=== PATIENT | male | born 1940 | race Caucasian/White ===

== ENCOUNTER 2016-11-09 19:35 | Observation (INO) | payer MEDICARE, OTHER ==
[2016-11-09 19:53] VITALS: BMI 19.8
--- NOTE | 2016-11-09 20:22 | ED PDOC ---
Arrival/HPI - General Chief Complaint: High Blood Pressure Time Seen by Provider: 11/09/16 19:43 Historian: Patient - History of Present Illness Narrative History of Present Illness (Text): 11/09/16 20:20 The patient is a 76yo male with Past medical history of hypertension, NIDDM, hyperlipidemia, CAD, s/p coronary stent placement, presents to Emergency department with complaints of generalized malaise and weakness. Pt also reports he has been losing weight; additionally reports complaints of diarrhea and intermittent chest pain. Pt denies any history of fever, chills, shortness of breath. Pt offers no additional medical complaints. PCP: Teresa Sheridan Past Medical History - Provider Review Nursing Documentation Reviewed: Yes - Infectious Disease Hx of Infectious Diseases: None - Tetanus Immunization Tetanus Immunization: Unknown - Reproductive Currently : No Currently Lactating: No - Cardiac Hx Hypertension: Yes Hx Pacemaker: No - Pulmonary Hx Respiratory Disorders: No - Neurological Hx Paralysis: No - HEENT Hx HEENT Disorder: No (lasik surgery) - Renal Hx Renal Disorder: No - Endocrine/Metabolic Hx Endocrine Disorders: Yes Hx Diabetes Mellitus Type 2: Yes - Hematological/Oncological Hx Blood Transfusions: No Hx Blood Transfusion Reaction: No - Integumentary Hx Dermatological Disorder: No - Musculoskeletal/Rheumatological Hx Musculoskeletal Disorders: Yes - Gastrointestinal Hx Gastrointestinal Disorders: Yes Hx Gastroesophageal Reflux: Yes - Genitourinary/Gynecological Hx Genitourinary Disorders: No - Psychiatric Hx Emotional Abuse: No Hx Physical Abuse: No Hx Substance Use: No - Past Surgical History Past Surgical History: No Previous - Surgical History Other/Comment: valve replacement - Anesthesia Hx Anesthesia: Yes Hx Anesthesia Reactions: No - Suicidal Assessment Feels Threatened In Home Enviroment: No Family/Social History - Physician Review Nursing Documentation Reviewed: Yes Family/Social History: Unknown Family HX Smoking Status: Never Smoked Hx Alcohol Use: No Hx Substance Use: No Hx Substance Use Treatment: No Allergies/Home Meds Allergies/Adverse Reactions: Allergies Penicillins Allergy (Severe, Verified 03/23/16 11:15) ANGIOEDEMA Home Medications: Home Meds Medication Instructions Recorded Confirmed Metformin HCl 1,000 mg PO BID 11/02/11 11/09/16 Sitagliptin Phosphate [Januvia] 100 mg PO DAILY 11/02/11 11/09/16 Aspirin [Aspirin EC] 81 mg PO DAILY 12/30/14 11/09/16 Carvedilol [Coreg] 12.5 mg PO DAILY 03/23/16 11/09/16 GlipiZIDE [Glucotrol] 5 mg PO DAILY 03/23/16 11/09/16 Pravastatin Sodium [Pravachol] 40 mg PO DAILY 03/23/16 11/09/16 Clopidogrel [Plavix] 1 tab PO DAILY 11/09/16 11/09/16 Dexlansoprazole [Dexilant] 1 cap PO DAILY 11/09/16 11/09/16 Review of Systems - Physician Review All systems were reviewed & negative as marked: Yes - Review of Systems Constitutional: Weight Change, Other (malaise, generalized discomfort). absent : Fevers Respiratory: absent: SOB Cardiovascular: Chest Pain (intermittent), Other (chest discomfort) Gastrointestinal: Diarrhea Physical Exam Vital Signs Reviewed: Yes Vital Signs Temp Pulse Resp BP Pulse Ox 11/09/16 19:59 168/68 H 11/09/16 19:52 97.8 F 75 18 173/62 H 99 Temperature: Afebrile Blood Pressure: Normal Pulse: Regular Respiratory Rate: Normal Appearance: Positive for: Well-Appearing, Non-Toxic, Comfortable Mental Status: Positive for: Alert and Oriented X 3 - Systems Exam Head: Present: Atraumatic, Normocephalic Pupils: Present: PERRL Extroacular Muscles: Present: EOMI Conjunctiva: Present: Normal Mouth: Present: Moist Mucous Membranes Neck: Present: Normal Range of Motion Respiratory/Chest: Present: Clear to Auscultation, Good Air Exchange. No: Respiratory Distress, Accessory Muscle Use Cardiovascular: Present: Regular Rate and Rhythm, Normal S1, S2. No: Murmurs Abdomen: Present: Normal Bowel Sounds. No: Tenderness, Distention, Peritoneal Signs Back: Present: Normal Inspection Upper Extremity: Present: Normal Inspection. No: Cyanosis, Edema Lower Extremity: Present: Normal Inspection. No: Edema Neurological: Present: GCS=15, CN II-XII Intact, Speech Normal Skin: Present: Warm, Dry, Normal Color. No: Rashes Psychiatric: Present: Alert, Oriented x 3, Normal Insight, Normal Concentration Medical Decision Making ED Course and Treatment: 11/09/16 20:23 Impression: Chest discomfort, general malaise and weakness Differential Diagnosis included but are not limited to: Electrolyte disturbance, cardiac angina, pneumonia, occult cancer Plan: -- Labs -- EKG -- CXR -- Reassess and disposition Progress Notes: 11/09/16 22:[address] Dent who is aware and agrees with the plan to admit patient to telemetry for chest pain. Accepts patient under her service with Dr. Chaidez on cardiology consult. - Lab Interpretations Lab Results: 11/09/16 20:50 11/09/16 20:50 Lab Results 11/09/16 20:50: WBC 5.1, RBC 3.84, Hgb 8.6 L, Hct 27.6 L, MCV 71.9 L, MCH 22.4 L , MCHC 31.2, RDW 17.2 H, Plt Count 258, MPV 9.5 11/09/16 20:50: Sodium 136, Potassium 4.0, Chloride 103, Carbon Dioxide 22, Anion Gap 15, BUN 18, Creatinine 0.9, Est GFR ( Amer) > 60, Est GFR (Non- Af Amer) > 60, Random Glucose 131 H, Calcium 9.3, Total Bilirubin 0.4, AST 29, ALT 27, Alkaline Phosphatase 58, Lactate Dehydrogenase 405, Total Creatine Kinase 74, Troponin I < 0.01, Total Protein 7.2, Albumin 3.9, Globulin 3.3, Albumin/Globulin Ratio 1.2 11/09/16 20:50: PT 12.4 H, INR 1.15 H, APTT 27.2 - RAD Interpretation Narrative RAD Interpretations (Text): 11/09/16 21:49 Chest X-ray with no acute processes. Radiology Orders: 11/09/16 20:13 CHEST PORTABLE [RAD] Stat C Iron Worker: ED Physician - EKG Interpretation EKG Interpretation (Text): 11/09/16 21:17 Normal sinus rhythm HR of 72 BPM 1st degree AV block RBBB Left anterior fascicular block Interpreted by ED Physician: Yes Comparison: Similar to previous EKG - Medication Orders Current Medication Orders: Sodium Chloride (Sodium Chloride 0.9%) 1,000 mls @ 100 mls/hr IV .Q10H [facility] - Scribe Statement The provider has reviewed the documentation as recorded by the Nish Reid Provider Scribe Attestation: All medical record entries made by the Aniibomid were at my direction and personally dictated by me. I have reviewed the chart and agree that the record accurately reflects my personal performance of the history, physical exam, medical decision making, and the department course for this patient. I have also personally directed, reviewed, and agree with the discharge instructions and disposition. Disposition/Present on Arrival - Present on Arrival Any Indicators Present on Arrival: No History of DVT/PE: No History of Uncontrolled Diabetes: No Urinary Catheter: No History of Decub. Ulcer: No History Surgical Site Infection Following: None - Disposition Have Diagnosis and Disposition been Completed?: Yes Diagnosis: Chest pain Disposition: HOSPITALIZED Disposition Time: 22:13 Patient Plan: Observation Patient Problems: Current Active Problems Problem Status Onset Chest pain Acute Condition: STABLE
[2016-11-09 21:12] LABS: HEMOGLOBIN 8.6 gm/dL (14.0-18.0); MEAN CELL VOLUME 71.9 fL (80.0-105.0); MEAN CORPUSCULAR HEMOGLOBIN 22.4 pg (25.0-35.0); MEAN CORPUSCULAR HGB CONC 31.2 g/dl (31.0-37.0); MEAN PLATELET VOLUME 9.5 fl (7.0-11.0); RBC 3.84 10^6/uL (3.5-6.1); RED CELL DISTRIBUTION WIDTH 17.2 % (11.5-14.5); WHITE BLOOD COUNT 5.1 10^3/ul (4.5-11.0)
[2016-11-09 21:22] LABS: ALB/GLOB RATIO 1.2 (1.1-1.8); ALBUMIN 3.9 g/dL (3.0-4.8); ALT/SGPT 27 U/L (7-56); AST/SGOT 29 U/L (15-59); BLOOD UREA NITROGEN 18 mg/dL (7-21); CALCIUM 9.3 mg/dL (8.4-10.5); GFR AFRICAN-AMERICAN > 60; GFR NON-AFRICAN AMERICAN > 60
[2016-11-09 21:38] LABS: TROPONIN I < 0.01 ng/mL
[2016-11-09] MEDS ORDERED: Sodium Chloride 0.9% 1,000 ML IV SCH (21:45)
[2016-11-09 22:18] LABS: INR 1.15 (0.93-1.08); PARTIAL THROMBOPLASTIN TIME 27.2 Seconds (23.7-30.8); PROTHROMBIN TIME 12.4 Seconds (9.9-11.8)
[2016-11-10 06:16] VITALS: O2SAT 100
--- NOTE | 2016-11-10 07:44 | RAD ---
HISTORY: weak COMPARISON: 03/18/2016 FINDINGS: LUNGS: Lung volumes probably slightly increased. Biapical pleural thickening. Probable left apical blebs/ bullous emphysematous changes. No infiltrate. Infrahilar bilateral costo cartilaginous calcifications project over each medial lung base PLEURA: No significant pleural effusion identified, no pneumothorax apparent. Biapical pleural thickening CARDIOVASCULAR: Normal. OSSEOUS STRUCTURES: Thoracic spondylosis. Bilateral shoulder arthrosis VISUALIZED UPPER ABDOMEN: Normal. OTHER FINDINGS: None. IMPRESSION: No interval infiltrate Inferred chronic biapical changes
[2016-11-10 09:02] LABS: HDL CHOLESTEROL 32 mg/dL (29-60)
--- NOTE | 2016-11-10 09:10 | CP.PCM.CON ---
History of Present Illness - History of Present Illness History of Present Illness: Reason for Consultation: Cardiac Eval, Hx of PTCA admitted with Diarhea and weakness. 76 year old with pMhx CAD S/p PTCA with MARCO of Proximal RCA and POBA of RPDA/ Mid Cx admitted with Diarhea and gen weakness and low H& H , denies chest pain, SOB. but c/o occ skip beat.??? PMHX T2 DM, HTN, Hyperlidemia. Previous cardiac W/uAbnormal stress test 03/09/16... leading cath / PTCA of RCA with MARCO and POBa of R PDa / Cx, EF-55%, [id number] Echo..03/19/2016.. EF-55%,Trace [id number], Mild MR Holter... no Skip Beat. No Pause, Occ Apcs ( pt always C/o Skip Beat) Review of Systems - Review of Systems Systems not reviewed;Unavailable: Acuity of Condition - Constitutional Constitutional: As Per HPI, Frequent Falls Additional comments: [place] in [place] on speed breaker bump, bult nio LOC - EENT Eyes: As Per HPI Ears: As Per HPI Nose/Mouth/Throat: As Per HPI - Cardiovascular Cardiovascular: As Per HPI - Respiratory Respiratory: As Per HPI - Gastrointestinal Gastrointestinal: Abdominal Pain, Dysphagia, Loose Stools Additional comments: and water diarrhea. Past Patient History - Infectious Disease Hx of Infectious Diseases: None - Tetanus Immunizations Tetanus Immunization: Unknown - Past Social History Smoking Status: Never Smoked - CARDIAC Hx Hypercholesterolemia: Yes Hx Hypertension: Yes - PULMONARY Hx Respiratory Disorders: No - NEUROLOGICAL Hx Paralysis: No - HEENT Hx HEENT Problems: No (lasik surgery) - RENAL Hx Chronic Kidney Disease: No - ENDOCRINE/METABOLIC Hx Diabetes Mellitus Type 2: Yes - HEMATOLOGICAL/ONCOLOGICAL Hx Anemia: Yes - INTEGUMENTARY Hx Dermatological Problems: No - MUSCULOSKELETAL/RHEUMATOLOGICAL Hx Falls: Yes - GASTROINTESTINAL Hx Gastroesophageal Reflux: Yes - GENITOURINARY/GYNECOLOGICAL Hx Genitourinary Disorders: No - PSYCHIATRIC Hx Emotional Abuse: No Hx Physical Abuse: No Hx Substance Use: No - SURGICAL HISTORY Other/Comment: valve replacement - ANESTHESIA Hx Anesthesia: Yes Hx Anesthesia Reactions: No Meds Allergies/Adverse Reactions: Allergies Allergy/AdvReac Type Severity Reaction Status Date / Time Penicillins Allergy Severe ANGIOEDEMA Verified 03/23/16 11:15 - Medications Medications: Current Medications Sodium Chloride (Sodium Chloride 0.9%) 1,000 mls @ 100 mls/hr IV .Q10H [facility] Last Admin: 11/09/16 22:41 Dose: 100 mls/hr Results - Vital Signs Recent Vital Signs: Last Vital Signs Temp 97.5 F L 11/10/16 06:00 Pulse 60 11/10/16 06:00 Resp 18 11/10/16 06:00 BP 144/67 11/10/16 06:00 Pulse Ox 100 11/10/16 06:00 - Labs Result Diagrams: 11/09/16 20:50 11/09/16 20:50 Labs: Laboratory Results - last 24 hr 11/10/16 07:29 POC Glucose (mg/dL) 87 - EKG Data When Compared to Previous EKG: No Significant Change EKG comments: NSR, RBB, LAD. Assessment & Plan - Assessment and Plan (Free Text) Assessment: Anemia diarrea loos BM gen weakness No chest pain CAD S/p PTCA with MARCO of RCA- 03/29/2016 T2DM HTN Hyperlidemia Plan: Anemia W/u ..as ordered TSH, Lipid profile, HA1c troponin this am No acute Cardiac problem consider GI W/U Echo to assess LV Fx if need to Hold Plavix from GI W/u can be hold as stent is > 8 months. will F/u, if repeat Troponin is negative will dc tele. - Date & Time Date: 11/10/16 Time: 07:30
[2016-11-10 09:13] LABS: LDL CHOLESTEROL 46 mg/dL (0-129)
[2016-11-10 09:24] LABS: TROPONIN I < 0.01 ng/mL
[2016-11-10 09:29] LABS: % IRON SATURATION 3 % (20-55); IRON 12 ug/dL (45-180); TOTAL IRON BINDING CAPACITY 399 ug/dL (261-462)
[2016-11-10 09:52] LABS: HEMOGLOBIN 8.8 gm/dL (14.0-18.0); MEAN CELL VOLUME 71.5 fL (80.0-105.0); MEAN CORPUSCULAR HEMOGLOBIN 22.4 pg (25.0-35.0); MEAN CORPUSCULAR HGB CONC 31.3 g/dl (31.0-37.0); MEAN PLATELET VOLUME 9.9 fl (7.0-11.0); RBC 3.93 10^6/uL (3.5-6.1); WHITE BLOOD COUNT 4.7 10^3/ul (4.5-11.0)
[2016-11-10 10:07] LABS: ALB/GLOB RATIO 1.2 (1.1-1.8); ALBUMIN 3.7 g/dL (3.0-4.8); ALT/SGPT 21 U/L (7-56); AST/SGOT 26 U/L (15-59); BLOOD UREA NITROGEN 14 mg/dL (7-21); GFR AFRICAN-AMERICAN > 60; GFR NON-AFRICAN AMERICAN > 60
[2016-11-10] MEDS ORDERED: Barium Sulfate Susp 2.1% w/v, 2.0% w/w 450 mL Bottle PO ONE (10:09)
[2016-11-10] MEDS: Sodium Chloride 0.9% 1,000 ML IV SCH ×3 (10:57→23:34)
[2016-11-10] MEDS: Pantoprazole 40 mg EC Tab PO SCH (10:57)
[2016-11-10 12:03] VITALS: RESP 20
--- NOTE | 2016-11-10 12:42 | CP.PCM.CON ---
<Teresa Liu - Last Filed: 11/10/16 12:24> History of Present Illness - History of Present Illness History of Present Illness: Seen and examined at bedside, chart reviewed. Request for consult is for: Diarrhea and Anemia HPI : This is a 76 year old male with a history of HTN, Anemia, DM, CAD w / stent on Plavix and Aspirin, comes to the hospital with complaints of feeling weak, and tired. He also have intermittent chest pain and diarrhea. He complains of diarrhea. He was in [place] in July and fell , had a laceration and was given antibiotic in [place]. He does not recall the name of the antibiotics but reports that this is when he started having diarrhea. No bleeding reported. He does report post prandial diarrhea, no N/V or abdominal pain. He reports that he has chronic Anemia, he had EGD/ Colon last noted in system 2011 for ANemia workup and no acute findings,stomach biopfy to r/o celiac disease, eosinophilic esophagitis, h pylori were negative. No c/o dysphagia. He as not had a BM since admission. He is currently drinking oral coantrast for ct scan. No SOB or chest pain. PMH: Anemia, DM, CAD w/ stent , HTN PSH: egd/colon 2011, no polyps Allergies: Penicillin MEDS: reviewed as per MAR FH: noncontributory at this time Social HX: denies smoking, etoh,drugs ROS: systems reviewed as per HPI Past Patient History - Infectious Disease Hx of Infectious Diseases: None - Tetanus Immunizations Tetanus Immunization: Unknown - Past Social History Smoking Status: Never Smoked - CARDIAC Hx Hypercholesterolemia: Yes Hx Hypertension: Yes - PULMONARY Hx Respiratory Disorders: No - NEUROLOGICAL Hx Paralysis: No - HEENT Hx HEENT Problems: No (lasik surgery) - RENAL Hx Chronic Kidney Disease: No - ENDOCRINE/METABOLIC Hx Diabetes Mellitus Type 2: Yes - HEMATOLOGICAL/ONCOLOGICAL Hx Anemia: Yes - INTEGUMENTARY Hx Dermatological Problems: No - MUSCULOSKELETAL/RHEUMATOLOGICAL Hx Falls: Yes - GASTROINTESTINAL Hx Gastroesophageal Reflux: Yes - GENITOURINARY/GYNECOLOGICAL Hx Genitourinary Disorders: No - PSYCHIATRIC Hx Emotional Abuse: No Hx Physical Abuse: No Hx Substance Use: No - SURGICAL HISTORY Other/Comment: valve replacement - ANESTHESIA Hx Anesthesia: Yes Hx Anesthesia Reactions: No Meds Allergies/Adverse Reactions: Allergies Allergy/AdvReac Type Severity Reaction Status Date / Time Penicillins Allergy Severe ANGIOEDEMA Verified 03/23/16 11:15 - Medications Medications: Current Medications Aspirin (Ecotrin) 81 mg PO DAILY [facility] Last Admin: 11/10/16 10:56 Dose: 81 mg Atorvastatin Calcium (Lipitor) 10 mg PO DIN [facility] Carvedilol (Coreg) 12.5 mg PO DAILY [facility] Last Admin: 11/10/16 10:56 Dose: 12.5 mg Clopidogrel Bisulfate (Plavix) 75 mg PO DAILY [facility] Glipizide (Glucotrol) 5 mg PO ACB [facility] Last Admin: 11/10/16 10:57 Dose: 5 mg Sodium Chloride (Sodium Chloride 0.9%) 1,000 mls @ 100 mls/hr IV .Q10H [facility] Last Admin: 11/10/16 10:57 Dose: 100 mls/hr Insulin Human Lispro (Humalog Med) 0 units SC ACHS [facility] PRN Reason: Protocol Metformin HCl (Glucophage) 1,000 mg PO BID [facility] Last Admin: 11/10/16 10:56 Dose: 1,000 mg Pantoprazole Sodium (Protonix Ec Tab) 40 mg PO DAILY [facility] Last Admin: 11/10/16 10:57 Dose: 40 mg Sitagliptin Phosphate (Januvia) 100 mg PO DAILY [facility] Last Admin: 11/10/16 10:57 Dose: 100 mg Physical Exam - Constitutional Appears: No Acute Distress - Eye Exam Eye Exam: Normal appearance. absent: Scleral icterus - ENT Exam ENT Exam: Mucous Membranes Moist - Neck Exam Neck exam: Positive for: Normal Inspection - Respiratory Exam Respiratory Exam: Clear to Auscultation Bilateral, NORMAL BREATHING PATTERN. absent: Respiratory Distress - Cardiovascular Exam Cardiovascular Exam: +S1, +S2 - GI/Abdominal Exam GI & Abdominal Exam: Normal Bowel Sounds, Soft. absent: Distended, Guarding, Organomegaly, Rebound, Tenderness - Extremities Exam Extremities exam: Positive for: pedal pulses present. Negative for: calf tenderness, pedal edema - Neurological Exam Neurological exam: Alert, Oriented x3 - Skin Skin Exam: Dry, Warm Results - Vital Signs Recent Vital Signs: Last Vital Signs Temp 97.4 F L 11/10/16 12:00 Pulse 58 L 11/10/16 12:00 Resp 20 11/10/16 12:00 BP 126/55 L 11/10/16 12:00 Pulse Ox 100 11/10/16 06:00 - Labs Result Diagrams: 11/10/16 06:30 11/10/16 06:30 Labs: Laboratory Results - last 24 hr 11/10/16 11/10/16 11/10/16 06:30 06:30 07:29 WBC 4.7 RBC 3.93 Hgb 8.8 L Hct 28.1 L MCV 71.5 L MCH 22.4 L MCHC 31.3 RDW 17.0 H Plt Count 260 MPV 9.9 Sodium 141 Potassium 4.0 Chloride 110 H Carbon Dioxide 22 Anion Gap 13 BUN 14 Creatinine 0.7 Est GFR ( Amer) > 60 Est GFR (Non-Af Amer) > 60 POC Glucose (mg/dL) 87 Random Glucose 85 Hemoglobin A1c Calcium 9.0 Iron TIBC % Saturation Total Bilirubin 0.4 AST 26 ALT 21 Alkaline Phosphatase 60 Lactate Dehydrogenase Total Creatine Kinase Troponin I Total Protein 6.9 Albumin 3.7 Globulin 3.1 Albumin/Globulin Ratio 1.2 Triglycerides Cholesterol LDL Cholesterol Direct HDL Cholesterol TSH 3rd Generation 11/10/16 11/10/16 11/10/16 08:20 08:20 08:30 WBC RBC Hgb Hct MCV MCH MCHC RDW Plt Count MPV Sodium Potassium Chloride Carbon Dioxide Anion Gap BUN Creatinine Est GFR ( Amer) Est GFR (Non-Af Amer) POC Glucose (mg/dL) Random Glucose Hemoglobin A1c 7.1 H Calcium Iron TIBC % Saturation Total Bilirubin AST ALT Alkaline Phosphatase Lactate Dehydrogenase 374 Total Creatine Kinase 61 Troponin I < 0.01 Total Protein Albumin Globulin Albumin/Globulin Ratio Triglycerides 64 Cholesterol 92 L LDL Cholesterol Direct 46 HDL Cholesterol 32 TSH 3rd Generation 0.50 11/10/16 11/10/16 08:30 11:17 WBC RBC Hgb Hct MCV MCH MCHC RDW Plt Count MPV Sodium Potassium Chloride Carbon Dioxide Anion Gap BUN Creatinine Est GFR ( Amer) Est GFR (Non-Af Amer) POC Glucose (mg/dL) 202 H Random Glucose Hemoglobin A1c Calcium Iron 12 L TIBC 399 % Saturation 3 L Total Bilirubin AST ALT Alkaline Phosphatase Lactate Dehydrogenase Total Creatine Kinase Troponin I Total Protein Albumin Globulin Albumin/Globulin Ratio Triglycerides Cholesterol LDL Cholesterol Direct HDL Cholesterol TSH 3rd Generation Assessment & Plan - Assessment and Plan (Free Text) Assessment: ASSESSMENT: Anemia, Iron deficiency Diarrhea, r/o Cdiff, r/o Malabsorption Weight Loss CAD, w/ stent on Plavix HTN DM PLAN: follow up ct scan chest/A&P pending stool studies: cdiff, culture, O&P FU ferritin, B12 for iron infusion discussed with Dr. Dent Thank you for this consult and for allowing us to participate in your patient care, will make further recommendation based upon clinical course. Seen and discussed with Dr. Bergman. <Sammie Bergman V - Last Filed: 11/10/16 21:38> Meds - Medications Medications: Current Medications Aspirin (Ecotrin) 81 mg PO DAILY [facility] Last Admin: 11/10/16 10:56 Dose: 81 mg Atorvastatin Calcium (Lipitor) 10 mg PO DIN [facility] Last Admin: 11/10/16 18:39 Dose: 10 mg Carvedilol (Coreg) 12.5 mg PO DAILY [facility] Last Admin: 11/10/16 10:56 Dose: 12.5 mg Clopidogrel Bisulfate (Plavix) 75 mg PO DAILY [facility] Glipizide (Glucotrol) 5 mg PO ACB [facility] Last Admin: 11/10/16 10:57 Dose: 5 mg Sodium Chloride (Sodium Chloride 0.9%) 1,000 mls @ 100 mls/hr IV .Q10H [facility] Last Admin: 11/10/16 10:57 Dose: 100 mls/hr Insulin Human Lispro (Humalog Med) 0 units SC ACHS [facility] PRN Reason: Protocol Last Admin: 11/10/16 16:30 Dose: Not Given Pantoprazole Sodium (Protonix Ec Tab) 40 mg PO DAILY [facility] Last Admin: 11/10/16 10:57 Dose: 40 mg Sitagliptin Phosphate (Januvia) 100 mg PO DAILY [facility] Last Admin: 11/10/16 10:57 Dose: 100 mg Results - Vital Signs Recent Vital Signs: Last Vital Signs Temp 97.5 F L 11/10/16 18:00 Pulse 56 L 11/10/16 18:00 Resp 20 11/10/16 18:00 BP 132/52 L 11/10/16 18:00 Pulse Ox 100 11/10/16 06:00 - Labs Result Diagrams: 11/10/16 06:30 11/10/16 06:30 Labs: Laboratory Results - last 24 hr 11/10/16 11/10/16 11/10/16 06:30 06:30 07:29 WBC 4.7 RBC 3.93 Hgb 8.8 L Hct 28.1 L MCV 71.5 L MCH 22.4 L MCHC 31.3 RDW 17.0 H Plt Count 260 MPV 9.9 Sodium 141 Potassium 4.0 Chloride 110 H Carbon Dioxide 22 Anion Gap 13 BUN 14 Creatinine 0.7 Est GFR ( Amer) > 60 Est GFR (Non-Af Amer) > 60 POC Glucose (mg/dL) 87 Random Glucose 85 Hemoglobin A1c Calcium 9.0 Iron TIBC % Saturation Ferritin Total Bilirubin 0.4 AST 26 ALT 21 Alkaline Phosphatase 60 Lactate Dehydrogenase Total Creatine Kinase Troponin I Total Protein 6.9 Albumin 3.7 Globulin 3.1 Albumin/Globulin Ratio 1.2 Triglycerides Cholesterol LDL Cholesterol Direct HDL Cholesterol Vitamin B12 TSH 3rd Generation 11/10/16 11/10/16 11/10/16 08:20 08:20 08:30 WBC RBC Hgb Hct MCV MCH MCHC RDW Plt Count MPV Sodium Potassium Chloride Carbon Dioxide Anion Gap BUN Creatinine Est GFR ( Amer) Est GFR (Non-Af Amer) POC Glucose (mg/dL) Random Glucose Hemoglobin A1c 7.1 H Calcium Iron TIBC % Saturation Ferritin 8.0 Total Bilirubin AST ALT Alkaline Phosphatase Lactate Dehydrogenase 374 Total Creatine Kinase 61 Troponin I < 0.01 Total Protein Albumin Globulin Albumin/Globulin Ratio Triglycerides 64 Cholesterol 92 L LDL Cholesterol Direct 46 HDL Cholesterol 32 Vitamin B12 566 TSH 3rd Generation 0.50 11/10/16 11/10/16 11/10/16 08:30 11:17 17:10 WBC RBC Hgb Hct MCV MCH MCHC RDW Plt Count MPV Sodium Potassium Chloride Carbon Dioxide Anion Gap BUN Creatinine Est GFR ( Amer) Est GFR (Non-Af Amer) POC Glucose (mg/dL) 202 H 85 Random Glucose Hemoglobin A1c Calcium Iron 12 L TIBC 399 % Saturation 3 L Ferritin Total Bilirubin AST ALT Alkaline Phosphatase Lactate Dehydrogenase Total Creatine Kinase Troponin I Total Protein Albumin Globulin Albumin/Globulin Ratio Triglycerides Cholesterol LDL Cholesterol Direct HDL Cholesterol Vitamin B12 TSH 3rd Generation Attending/Attestation - Attestation I have personally seen and examined this patient.: Yes I have fully participated in the care of the patient.: Yes I have reviewed all pertinent clinical information: Yes Notes (Text): 11/10/16 21:31 this patient was seen and evaluated earlier. Discussed with the Dr. Dent. The CT scan was reviewed Patient is complaining of chronic diarrhea intermittent episodes that got significantly worse after his recent return from [place]. Patient did have some improvement with empiric therapy with Flagyl. Patient has significant iron deficiency anemia. The CT scan was reviewedagain today pancreatic abnormalities or findings The differential diagnosis for his anemia and weight loss and diarrhea should include malabsorption secondary to bacterial overgrowth syndrome versus pancreatic insufficiency. Patient has significant weight loss and anemia need to also rule out occult malignancy. GI workup done was more than 4 years ago The patient would benefit from EGD and colonoscopy Cardiology note was reviewed would consider stopping the Plavix a week before the endoscopy and colonoscopy which can be performed as an outpatient. Patient is now receiving iron supplement Patient was advised to stop the supplement of by mouth iron at least 3 days before the EGD and colonoscopy
[2016-11-10] MEDS ORDERED: Iohexol 350 MG/100 ML VIAL ONE (15:08)
--- NOTE | 2016-11-10 16:06 | CT ---
PROCEDURE: CT Chest, Abdomen and Pelvis with intravenous contrast HISTORY: anemia/chronic diarrhea/weight loss/weakness COMPARISON: None. TECHNIQUE: IV dose administered: 100 cc of Omni 350 Radiation dose: Total exam DLP = 414 mGy-cm. This CT exam was performed using one or more of the following dose reduction techniques: Automated exposure control, adjustment of the mA and/or kV according to patient size, and/or use of iterative reconstruction technique. FINDINGS: CT CHEST WITH CONTRAST: LUNGS: There is minimal patchy infiltrate at the left lung base image 70 series 4 MEDIASTINUM: Unremarkable. Normal caliber aorta and pulmonary arterial trunk. No aortic dissection. Normal size heart. LYMPH NODES: Unremarkable. PLEURA: Unremarkable. No pneumothorax. No pleural fluid. BONES: Unremarkable. OTHER FINDINGS: None. CT ABDOMEN AND PELVIS: LIVER: Unremarkable. No gross lesion or ductal dilatation. GALLBLADDER AND BILE DUCTS: Unremarkable. PANCREAS: Unremarkable. No gross lesion or ductal dilatation. SPLEEN: Unremarkable. ADRENALS: Unremarkable. No mass. KIDNEYS AND URETERS: Unremarkable. No hydronephrosis. No solid mass. VASCULATURE: Unremarkable. No aortic aneurysm. BOWEL: Unremarkable. No obstruction. No gross mural thickening. APPENDIX: Normal appendix. PERITONEUM: Unremarkable. No free fluid. No free air. LYMPH NODES: Unremarkable. No enlarged lymph nodes. BLADDER: Unremarkable. REPRODUCTIVE: Unremarkable. BONES: No acute fracture. OTHER FINDINGS: None. IMPRESSION: Minimal patchy infiltrate in the left lower lobe posteriorly. Study is otherwise unremarkable
[2016-11-10] MEDS: Insulin Lispro (humaLOG) MEDIUM Coverage SC SCH ×2 (16:30→22:08)
--- NOTE | 2016-11-10 16:41 | CARD ---
APPROVED REPORT EKG Measurement Heart [id number] <Conclusion> Sinus rhythm with 1st degree AV block Right bundle branch block Left anterior fascicular block Bifascicular block Septal infarct, age undetermined Abnormal ECG
--- NOTE | 2016-11-10 18:12 | CARD ---
APPROVED REPORT EXAM: Two-dimensional and M-mode echocardiogram with Doppler and color Doppler. INDICATION Chest Pain 2D DIMENSIONS Left Atrium (2D)3.5 (1.6-4.0cm)IVSd1.0 (0.7-1.1cm) LVDd4.2 (3.9-5.9cm)PWd1.0 (0.7-1.1cm) LVDs3.1 (2.5-4.0cm)FS (%) 26.7 % LVEF (%)52.6 (>50%) M-Mode DIMENSIONS Aortic Root2.20 (2.2-3.7cm)Aortic Cusp Exc.1.60 (1.5-2.0cm) Aortic Valve AoV Peak Ztndwksu005.0cm/Prince Peak GR.5mmHg Mitral Valve E/A ratio0.0 TDI E/Lateral E'0.0E/Medial E'0.0 Tricuspid Valve TR Peak [id number] [id number] Peak Gr.19mmHg [id number] LEFT VENTRICLE The left ventricle is normal size. There is normal left ventricular wall thickness. The left ventricular function is normal.[id number] There is normal LV segmental wall motion. Transmitral Doppler flow pattern is Grade II-pseudonormal filling dynamics. No left ventricle thrombus noted on this study. There is no ventricular septal defect visualized. There is no left ventricular aneurysm. There is no mass noted in the left ventricle. RIGHT VENTRICLE The right ventricle is normal size. There is normal right ventricular wall thickness. The right ventricular systolic function is normal. ATRIA The left atrium size is normal. The right atrium size is normal. The interatrial septum is intact with no evidence for an atrial septal defect. AORTIC VALVE The aortic valve is thickened but opens well. Trivial Ar There is no aortic valvular stenosis. There is no aortic valvular vegetation. MITRAL VALVE The mitral valve is thickened but opens well. Mitral regurgitation is mild to moderate. There is no mitral valve stenosis. There is no evidence of mitral valve prolapse. TRICUSPID VALVE The tricuspid valve leaflets are thickened , but open well. There is mild tricuspid regurgitation.RVSP-29 mmof Hg. There is no tricuspid valve stenosis. There is no tricuspid valve prolapse or vegetation. PULMONIC VALVE The pulmonary valve is normal in structure. There is no pulmonic valvular regurgitation. There is no pulmonic valvular stenosis. GREAT VESSELS The aortic root is normal in size. The ascending aorta is normal in size. The pulmonary artery is normal. The IVC is normal in size and collapses >50% with inspiration. PERICARDIAL EFFUSION There is no pleural effusion. There is no pericardial effusion. <Conclusion> The left ventricle is normal size. Trivial Ar Mitral regurgitation is mild to moderate. There is mild tricuspid regurgitation.RVSP-29 mmof Hg. The IVC is normal in size and collapses >50% with inspiration. There is no pericardial effusion.
[2016-11-11 06:45] LABS: BASO # 0.03 K/mm3 (0.0-2.0); BASO % 0.5 % (0.0-3.0); EOS # 0.3 (0.0-0.7); EOS % 5.1 % (1.5-5.0); GRAN # 3.73 (1.4-6.5); GRAN % 65.3 % (50.0-68.0); HEMOGLOBIN 8.1 gm/dL (14.0-18.0); LYMPH # 1.2 (1.2-3.4); MEAN CELL VOLUME 71.8 fL (80.0-105.0); MEAN CORPUSCULAR HGB CONC 30.6 g/dl (31.0-37.0); MEAN PLATELET VOLUME 9.7 fl (7.0-11.0); MONO # 0.5 (0.1-0.6); MONO % 8.1 % (1.0-6.0); PLATELET COUNT 248 10^3/uL (120.0-450.0); RBC 3.69 10^6/uL (3.5-6.1); RED CELL DISTRIBUTION WIDTH 17.2 % (11.5-14.5); WHITE BLOOD COUNT 5.7 10^3/ul (4.5-11.0)
[2016-11-11 07:06] LABS: ALB/GLOB RATIO 1.2 (1.1-1.8); ALBUMIN 3.4 g/dL (3.0-4.8); ALT/SGPT 23 U/L (7-56); AST/SGOT 23 U/L (15-59); BLOOD UREA NITROGEN 8 mg/dL (7-21); CALCIUM 8.8 mg/dL (8.4-10.5); GFR AFRICAN-AMERICAN > 60; GFR NON-AFRICAN AMERICAN > 60
[2016-11-11] MEDS: Insulin Lispro (humaLOG) MEDIUM Coverage SC SCH ×4 (10:10→18:47)
[2016-11-11] MEDS: Pantoprazole 40 mg EC Tab PO SCH (10:11)
--- NOTE | 2016-11-11 11:26 | CP.PCM.PN ---
Subjective - Date & Time of Evaluation Date of Evaluation: 11/11/16 Time of Evaluation: 09:40 - Subjective Subjective: Seen and examined at bedside, ct scan report reviewed, no acute findings abdomen , noted patchy infiltrate left lung, had BM yesterday after oral contrast , no reports of further diarrhea, no bleeding, no abdominal pain, sob or chest pain. Stool specimens sent and results pending. No acute overnight events. Objective - Vital Signs/Intake and Output Vital Signs (last 24 hours): Temp Pulse Resp BP Pulse Ox 98.3 F 63 20 138/61 100 11/11/16 09:01 11/11/16 10:09 11/11/16 09:01 11/11/16 10:09 11/11/16 09:01 Intake and Output: 11/11/16 11/11/16 06:59 18:59 Intake Total 120 Balance 120 - Medications Medications: Current Medications Aspirin (Ecotrin) 81 mg PO DAILY [facility] Last Admin: 11/11/16 10:10 Dose: 81 mg Atorvastatin Calcium (Lipitor) 10 mg PO DIN [facility] Last Admin: 11/10/16 18:39 Dose: 10 mg Carvedilol (Coreg) 12.5 mg PO DAILY [facility] Last Admin: 11/11/16 10:09 Dose: 12.5 mg Clopidogrel Bisulfate (Plavix) 75 mg PO DAILY [facility] Last Admin: 11/11/16 10:11 Dose: 75 mg Glipizide (Glucotrol) 5 mg PO ACB [facility] Last Admin: 11/11/16 10:10 Dose: 5 mg Sodium Chloride (Sodium Chloride 0.9%) 1,000 mls @ 75 mls/hr IV .[id number] [facility] Last Admin: 11/10/16 23:34 Dose: 75 mls/hr Iron Sucrose 100 mg/ Sodium (Chloride) 105 mls @ 210 mls/hr IVPB ONCE ONE Stop: 11/11/16 11:28 Insulin Human Lispro (Humalog Med) 0 units SC ACHS [facility] PRN Reason: Protocol Last Admin: 11/11/16 10:10 Dose: Not Given Pantoprazole Sodium (Protonix Ec Tab) 40 mg PO DAILY [facility] Last Admin: 11/11/16 10:11 Dose: 40 mg Sitagliptin Phosphate (Januvia) 100 mg PO DAILY [facility] Last Admin: 11/11/16 10:11 Dose: 100 mg - Labs Labs: 11/11/16 06:30 11/11/16 06:30 PT 12.4 Seconds (9.9-11.8) H 11/09/16 20:50 INR 1.15 (0.93-1.08) H 11/09/16 20:50 APTT 27.2 Seconds (23.7-30.8) 11/09/16 20:50 - Constitutional Appears: No Acute Distress - Head Exam Head Exam: NORMOCEPHALIC - Eye Exam Eye Exam: Normal appearance. absent: Scleral icterus - ENT Exam ENT Exam: Mucous Membranes Moist - Neck Exam Neck Exam: Normal Inspection - Respiratory Exam Respiratory Exam: Clear to Ausculation Bilateral, NORMAL BREATHING PATTERN. absent: Respiratory Distress - Cardiovascular Exam Cardiovascular Exam: +S1, +S2 - GI/Abdominal Exam GI & Abdominal Exam: Soft, Normal Bowel Sounds. absent: Guarding, Tenderness, Organomegaly, Rebound - Extremities Exam Extremities Exam: absent: Calf Tenderness, Pedal Edema - Neurological Exam Neurological Exam: Alert, Awake, Oriented x3 - Skin Skin Exam: Dry, Warm Assessment and Plan - Assessment and Plan (Free Text) Assessment: ASSESSMENT: Anemia, Iron deficiency Diarrhea, r/o Cdiff, r/o Malabsorption Weight Loss CAD, w/ stent on Plavix HTN DM PLAN: diet as tolerated FU results of stool studies: cdiff, culture monitor H/H IV iron discuss outpatient EGD and colon, will give date upon discharge, Patient on Plavix and Aspirin, Plavix needs to be stopped 5-7 days prior to procedure, Aspirin can be continued till the day before procedure. Cardiac recommendation noted and appreciated, Plavix can be stopped for endo, stent is > 8 months as per cardiology. Seen and discussed with Dr. Bergman.
[2016-11-11 17:03] VITALS: BP 142/62; PULSE 58; TEMP 98
[2016-11-11] MEDS: Sodium Chloride 0.9% 1,000 ML IV SCH (17:14)
--- NOTE | 2016-11-11 23:34 | CP.PCM.CON ---
History of Present Illness - History of Present Illness History of Present Illness: Mr. Zepeda is a 76 year old male admitted with diarrhea and anemia. Hb is 8gm/ dl. review of record showed Hb was 11 gm/dl in 2013, it declined gradually o 9 gm/ dl last year. iron studies showed severe iron deficiency. he also reports 7 pounds weight loss in past 2 weeks. Review of Systems - Constitutional Constitutional: As Per HPI, Fatigue, Malaise - EENT Eyes: absent: As Per HPI, Blind Spots, Blurred Vision, Change in Vision, Decreased Night Vision, Diplopia, Discharge, Dry Eye, Exophthalmos, Floaters, Irritation, Itchy Eyes, Loss of Peripheral Vision, Pain, Photophobia, Requires Corrective Lenses, Sees Flashes, Spots in Vision, Tunnel Vision, Other Visual Disturbances, Loss of Vision, Other - Cardiovascular Cardiovascular: absent: As Per HPI, Acrocyanosis, Chest Pain, Chest Pain at Rest , Chest Pain with Activity, Claudication, Diaphoresis, Dyspnea, Dyspnea on Exertion, Edema, Irregular Heart Rhythm, Pain Radiating to Arm/Neck/Jaw, Leg Edema, Leg Ulcers, Lightheadedness, Orthopnea, Palpitations, Paroxysmal Nocturnal Dyspnea, Pedal Edema, Radiating Pain, Rapid Heart Rate, Slow Heart Rate, Syncope, Other - Respiratory Respiratory: absent: As Per HPI, Cough, Dyspnea, Hemoptysis, Dyspnea on Exertion , Wheezing, Snoring, Stridor, Pain on Inspiration, Chest Congestion, Excessive Mucous Production, Change in Mucous Color, Pain with Coughing, Other - Gastrointestinal Gastrointestinal: As Per HPI - Musculoskeletal Musculoskeletal: absent: As Per HPI, Abnormal Gait, Arthralgias, Atrophy, Back Pain, Deformity, Joint Swelling, Limited Range of Motion, Loss of Height, Muscle Cramps, Muscle Weakness, Myalgias, Neck Pain, Numbness, Radiating Pain into Limb, Stiffness, Tingling, Other - Integumentary Integumentary: absent: As Per HPI, Acne, Alopecia, Bleeding Lesions, Change in Hair, Change in Nails, Change in Pigmentation, Changing Lesions, Dry Skin, Erythema, Furuncle, Hirsutism, Lesions, New Lesions, Non-Healing Lesions, Photosensitivity, Pruritus, Rash, Skin Pain, Skin Ulcer, Sores, Striae, Swelling , Unusual Bruising, Wounds, Jaundice, Other - Neurological Neurological: absent: As Per HPI, Abnormal Gait, Abnormal Hearing, Abnormal Movements, Abnormal Speech, Behavioral Changes, Burning Sensations, Confusion, Convulsions, Disequilibrium, Dizziness, Numbness, Focal Weakness, Frequent Falls , Headaches, Lack of Coordination, Loss of Vision, Memory Loss, Paresthesias, Radicular Pain, Restless Legs, Sensory Deficit, Syncope, Tingling, Tremor, Vertigo, Weakness, Other Visual Disturbances, Other - Hematologic/Lymphatic Hematologic: As Per HPI Past Patient History - Infectious Disease Hx of Infectious Diseases: None - Tetanus Immunizations Tetanus Immunization: Unknown - Past Medical History & Family History Past Medical History?: Yes Past Family History: Reviewed and not pertinent - Past Social History Smoking Status: Never Smoked - CARDIAC Hx Hypercholesterolemia: Yes Hx Hypertension: Yes - PULMONARY Hx Respiratory Disorders: No - NEUROLOGICAL Hx Paralysis: No - HEENT Hx HEENT Problems: No (lasik surgery) - RENAL Hx Chronic Kidney Disease: No - ENDOCRINE/METABOLIC Hx Diabetes Mellitus Type 2: Yes - HEMATOLOGICAL/ONCOLOGICAL Hx Anemia: Yes - INTEGUMENTARY Hx Dermatological Problems: No - MUSCULOSKELETAL/RHEUMATOLOGICAL Hx Falls: Yes - GASTROINTESTINAL Hx Gastroesophageal Reflux: Yes - GENITOURINARY/GYNECOLOGICAL Hx Genitourinary Disorders: No - PSYCHIATRIC Hx Emotional Abuse: No Hx Physical Abuse: No Hx Substance Use: No - SURGICAL HISTORY Other/Comment: valve replacement - ANESTHESIA Hx Anesthesia: Yes Hx Anesthesia Reactions: No Meds Allergies/Adverse Reactions: Allergies Allergy/AdvReac Type Severity Reaction Status Date / Time Penicillins Allergy Severe ANGIOEDEMA Verified 03/23/16 11:15 Physical Exam - Constitutional Appears: Well, Non-toxic - Head Exam Head Exam: ATRAUMATIC, NORMAL INSPECTION, NORMOCEPHALIC - Eye Exam Eye Exam: Normal appearance Pupil Exam: NORMAL ACCOMODATION - ENT Exam ENT Exam: Mucous Membranes Moist, Normal Exam - Neck Exam Neck exam: Positive for: Normal Inspection - Respiratory Exam Respiratory Exam: Clear to Auscultation Bilateral, NORMAL BREATHING PATTERN - Cardiovascular Exam Cardiovascular Exam: REGULAR RHYTHM, +S1, +S2 - GI/Abdominal Exam GI & Abdominal Exam: Normal Bowel Sounds, Soft - Extremities Exam Extremities exam: Positive for: normal inspection - Back Exam Back exam: NORMAL INSPECTION - Psychiatric Exam Psychiatric exam: Normal Affect - Skin Skin Exam: Dry, Intact, Normal Color Results - Vital Signs Recent Vital Signs: Last Vital Signs Temp 98 F 11/11/16 17:02 Pulse 58 L 11/11/16 17:02 Resp 20 11/11/16 17:02 BP 142/62 11/11/16 17:02 Pulse Ox 100 11/11/16 16:00 - Labs Result Diagrams: 11/11/16 06:30 11/11/16 06:30 Assessment & Plan - Assessment and Plan (Free Text) Assessment: Anemia : iron deficiency. s/p one dose of IV iron . 1 unit of PRBC for symptomatic anemia. B12 level pending. Stool occult pending. he will need work up EGD, colonoscopy to r/o occult malignancy. CT chest abdomen, pelvis no mass lesion identified. SPEP, IF, light chain assay. he will need IV iron for iron repletion. will be scheduled. CV : stable. Dr. Chaidez following. Entire medical record of [facility] dating back to 2012 reviewed. Discussed with daughter, patient, at length diagnosis, work up, treatment. Discussed with Dr. Dent. Thank you Dr. Dent for allowing us to participate in his care.
--- NOTE | 2016-11-12 20:02 | DS ---
SUBJECTIVE: The patient is a 76-year-old who was admitted with generalized weakness. He was found to be anemic. The patient states few months ago when he went back home, he tripped and fell, sustained a laceration, was given antibiotics and since then, however, his belly has not been the same. He is having intermittent diarrhea. However, patient had endoscopy and colonoscopy done 4 years ago. At that point, his hemoglobin was in the range of 10 to 11. This time, he is found to be anemic with a hemoglobin of 8.6, and today it is 8.1. The patient had angioplasty done in March 2016. He has been on Plavix and aspirin. However, patient was given IV fluids with significant improvement, he was evaluated by computer animator and GI and plan is to have endoscopy and colonoscopy done as an outpatient and Plavix will be on hold. PHYSICAL EXAMINATION: GENERAL: On examination today, he is awake and alert, communicative, ambulatory, he states he feels a lot better. VITAL SIGNS: He is afebrile. Pulse 63, respirations 20, blood pressure 138/61. LUNGS: Bilateral fair airflow. No rhonchi or crackle. HEART: S1 and S2 audible. No murmur. ABDOMEN: Soft. Nontender. No rebound. No guarding. NEUROLOGIC: He is awake and alert, communicative and ambulatory. EXTREMITIES: Bilateral legs, no edema. LABORATORY DATA: WBC 5.7, hemoglobin 8.1, hematocrit 26.5, platelets 248,000. Chemistries, sodium 142, potassium 3.8, chloride 111, CO2 of 24, BUN 8, creatinine 0.7, blood sugar of 285. ASSESSMENT: 1. Symptomatic anemia. 2. Status post dehydration. 3. Intermittent diarrhea. 4. Coronary artery disease, status post left anterior descending artery angioplasty. 5. [id number] diabetes. PLAN: The patient will be transfused 1 pack of RBCs. His Plavix will be on hold. He will follow up with Dr. Bergman next week to arrange for endoscopy and colonoscopy and to rule out malabsorption syndrome, and patient can be discharged home later on today after blood transfusion. He will follow up with PMD and Dr. Bergman as an outpatient. Shawna Dent MD
--- NOTE | 2016-11-13 11:12 | PN ---
REASON FOR CONSULTATION AND FOLLOWUP: Cardiac evaluation, history of PTCA, admitted with diarrhea and weakness. BRIEF CLINICAL HISTORY: This is a 76-year-old male with past medical history of CAD, status post PTCA with drug-eluting stent to proximal RCA and *------*, RPDA and mid circumflex, admitted with diarrhea, generalized weakness, losing weight, dropping H and H, feeling skipped beat, but no arrhythmia noted in Holter monitor or telemetry. He is being scheduled for endoscopy as an outpatient. Denies any chest pain, shortness of breath or any palpitation. PHYSICAL EXAMINATION VITAL SIGNS: Temperature afebrile, heart rate 66, blood pressure 136/61. HEENT: PERRLA, intact. NECK: Supple. No carotid bruits or thyromegaly. CARDIOPULMONARY: S1, S2 regular. LUNGS: Clear to auscultation. ABDOMEN: Soft. EXTREMITIES: Clubbing and cyanosis negative. LABORATORY DATA: Blood workup as follows: WBC 5.7, hemoglobin 8.9, hematocrit 26.5, platelet count 248. Chemistry shows sodium 140, potassium 3.8, chloride 101, carbon dioxide 24, anion gap of 11, BUN 8 and creatinine 0.8. Total protein *------*, albumin 3.4, albumin to globulin ratio 1.2. IMPRESSION: Anemia, diarrhea, losing weight, diabetes, hypertension, hyperlipidemia, coronary artery disease status post stent with percutaneous transluminal coronary angioplasty in right coronary artery and *------*posterior descending artery and circumflex in 03/2016. Echo in 03/2016 shows preserved left ventricular function, trace tricuspid regurgitation, mild mitral regurgitation. Holter, no skipped beat noted. Patient also complained of a skipped beat yesterday. Patient underwent echocardiography that shows trivial aortic regurgitation, preserved normal left ventricle size and [id number] mitral regurgitation, mild tricuspid regurgitation, right ventricular systolic pressure of 29, ejection fraction 55% to 60%. RECOMMENDATION: Patient is cleared from cardiac point of view to undergo endoscopy. If needed *------* five days. Discussed with *------*, nurse practitioner for GI. Patient is cleared from cardiac point of view. *------*schedule as outpatient for endoscopy. We will follow with you. Thank you *------* in taking care of Michael Zepeda. No further cardiac work up is planned at this time. Chula Chaidez MD
== END 2016-11-11 19:04 | disposition home or self-care (01) ==
LOC: ED 19:35 → ERH 22:10 → 2RNO 23:04 → 3RSO 11-10 21:10 → INTOOBSV 11-11 16:00 → OBSVTOIN 11-11 16:00
PROVIDERS: ADMIT Internal Medicine; ATTEND Internal Medicine
DX: D50.9 Iron deficiency anemia, unspecified (principal); E11.9 Type 2 diabetes mellitus without complications; E78.00 Pure hypercholesterolemia, unspecified; E78.5 Hyperlipidemia, unspecified; I10 Essential (primary) hypertension; I25.10 Atherosclerotic heart disease of native coronary artery without angina pectoris; K21.9 Gastro-esophageal reflux disease without esophagitis; K52.9 Noninfective gastroenteritis and colitis, unspecified; Z91.81 History of falling; Z79.82 Long term (current) use of aspirin; Z79.899 Other long term (current) drug therapy; Z95.2 Presence of prosthetic heart valve; Z95.5 Presence of coronary angioplasty implant and graft; R07.89 Other chest pain; R53.81 Other malaise; R53.1 Weakness; I44.0 Atrioventricular block, first degree; I45.10 Unspecified right bundle-branch block; I45.2 Bifascicular block; Z88.0 Allergy status to penicillin; R63.4 Abnormal weight loss; I08.3 Combined rheumatic disorders of mitral, aortic and tricuspid valves
CPT/HCPCS: 36415; 36430; 71010; 71260; 74177; 80053; 80061; 82550; 82607; 82728; 82747; 82948; 83036; 83540; 83550; 83615; 84443; 84484; 85025; 85027; 85610; 85730; 86850; 86900; 86920; 87045; 87324; 93005; 93306; 99285; G0378; J1756; J7040; P9016; Q9967

== ENCOUNTER 2017-01-07 16:03 | Emergency (ER) | payer OTHER, MEDICAID ==
[2017-01-07 16:07] VITALS: BMI 20.3
[2017-01-07 16:12] VITALS: TEMP 97.6; O2SAT 98
[2017-01-07] MEDS ORDERED: Oxycodone/Acetaminophen 5/325 mg Tab PO STA (16:23)
--- NOTE | 2017-01-07 16:23 | ED PDOC ---
Arrival/HPI - General Chief Complaint: Trauma Time Seen by Provider: 01/07/17 16:09 Historian: Patient - History of Present Illness Narrative History of Present Illness (Text): 01/07/17 16:11 76 year old male, pmh including cad/dm/anemia, taking aspirin and plavix, penicillin allergy, complaining of rt. hip and rt. rib pain s/p fall x 5 hours. Pt. stated that he was taking the shower earlier this morning inside the tub, soap bar accidentally drop on the tub and slipped which hit the rt. hip on the tub and secondly on the rt. rib region, no hematuria, no abdominal or pelvic pain, no dizziness, no chest pain or shortness of breath, no palpitation, no other medical or psychological complaints. Past Medical History - Provider Review Nursing Documentation Reviewed: Yes - Infectious Disease Hx of Infectious Diseases: None - Tetanus Immunization Tetanus Immunization: Unknown - Reproductive Currently : No Currently Lactating: No - Cardiac Hx Hypertension: Yes - Pulmonary Hx Respiratory Disorders: No - Neurological Hx Paralysis: No - HEENT Hx HEENT Disorder: No (lasik surgery) - Renal Hx Renal Disorder: No - Endocrine/Metabolic Hx Diabetes Mellitus Type 2: Yes - Hematological/Oncological Hx Anemia: Yes - Integumentary Hx Dermatological Disorder: No - Musculoskeletal/Rheumatological Hx Falls: Yes - Gastrointestinal Hx Gastroesophageal Reflux: Yes - Genitourinary/Gynecological Hx Genitourinary Disorders: No - Psychiatric Hx Emotional Abuse: No Hx Physical Abuse: No Hx Substance Use: No - Past Surgical History Past Surgical History: No Previous - Surgical History Other/Comment: valve replacement - Anesthesia Hx Anesthesia: Yes Hx Anesthesia Reactions: No - Suicidal Assessment Feels Threatened In Home Enviroment: No Family/Social History - Physician Review Nursing Documentation Reviewed: Yes Family/Social History: Unknown Family HX Smoking Status: Never Smoked Hx Alcohol Use: No Hx Substance Use: No Hx Substance Use Treatment: No Allergies/Home Meds Allergies/Adverse Reactions: Allergies Penicillins Allergy (Severe, Verified 03/23/16 11:15) ANGIOEDEMA Home Medications: Home Meds Medication Instructions Recorded Confirmed Metformin HCl 1,000 mg PO BID 11/02/11 01/07/17 Sitagliptin Phosphate [Januvia] 100 mg PO DAILY 11/02/11 01/07/17 Aspirin [Aspirin EC] 81 mg PO DAILY 12/30/14 01/07/17 Carvedilol [Coreg] 12.5 mg PO DAILY 03/23/16 01/07/17 GlipiZIDE [Glucotrol] 5 mg PO DAILY 03/23/16 01/07/17 Pravastatin Sodium [Pravachol] 40 mg PO DAILY 03/23/16 01/07/17 Clopidogrel [Plavix] 1 tab PO DAILY 11/09/16 01/07/17 Dexlansoprazole [Dexilant] 1 cap PO DAILY 11/09/16 01/07/17 Review of Systems - Review of Systems Constitutional: absent: Fatigue, Fevers Eyes: absent: Vision Changes ENT: absent: Hearing Changes Respiratory: absent: SOB, Cough Cardiovascular: absent: Chest Pain Gastrointestinal: absent: Abdominal Pain, Nausea, Vomiting Musculoskeletal: Arthralgias, Myalgias. absent: Back Pain, Neck Pain, Joint Swelling Skin: Rash. absent: Pruritis Neurological: absent: Headache, Dizziness, Focal Weakness Hemo/Lymphatic: absent: Adenopathy Physical Exam Vital Signs Reviewed: Yes Vital Signs Temp Pulse Resp BP Pulse Ox 01/07/17 18:15 65 17 160/72 H 98 01/07/17 16:04 97.6 F 67 18 165/65 H 98 Temperature: Afebrile Blood Pressure: Hypertensive Pulse: Regular Respiratory Rate: Normal Appearance: Positive for: Well-Appearing, Non-Toxic, Comfortable Pain Distress: Moderate Mental Status: Positive for: Alert and Oriented X 3 - Systems Exam Head: Present: Atraumatic, Normocephalic Pupils: Present: PERRL Extroacular Muscles: Present: EOMI Conjunctiva: Present: Normal Mouth: Present: Moist Mucous Membranes Neck: Present: Normal Range of Motion Respiratory/Chest: Present: Clear to Auscultation, Good Air Exchange, Tender to Palpation (+ttp on the rt. posterior lateral rib cage region with no ecchymosis/ no laceration or abrasion, skin intact. ). No: Respiratory Distress, Accessory Muscle Use, Wheezes, Decreased Breath Sounds, Rales, Retracting, Rhonchi, Tachypneic, Other Cardiovascular: Present: Regular Rate and Rhythm, Normal S1, S2. No: Murmurs Abdomen: Present: Normal Bowel Sounds. No: Tenderness, Distention, Peritoneal Signs, Rebound, Guarding Back: Present: Normal Inspection. No: CVA Tenderness, Midline Tenderness, Paraspinal Tenderness, Pain with Leg Raise, Decubitus Ulcer Upper Extremity: Present: Normal Inspection. No: Cyanosis, Edema Lower Extremity: Present: Normal Inspection, NORMAL PULSES, Neurovascularly Intact, Other (Rt. hip: +ttp on the lateral aspect of the greater trochanter with mild ecchymosis with skin intact, no laceration or abrasion, FROM without limitation, sensation intact, motor 5/5, +DPPT pulses, no pelvic tenderenss or discoloration. ). No: Edema Neurological: Present: GCS=15, Speech Normal, Motor Func Grossly Intact, Gait Normal, Memory Normal Skin: Present: Warm, Dry, Normal Color. No: Rashes Lymphatic: No: Cervical Adenopathy Psychiatric: Present: Alert, Oriented x 3, Normal Insight, Normal Concentration Medical Decision Making ED Course and Treatment: 01/07/17 16:28 -CT/xray -observe and reassess 01/07/17 17:46 -CT chest: No evidence of rib fracture. Improving left lower lobe infiltrate. Focal small airways disease in posterior segment right upper lobe. Linear pleural-based scar in left apex new since prior examination. Followup advised. -Rt. hip xray show: no fracture or dislocation -Pain improved, cane given, walking with normal gait and posture, discussed about the fall precaution, will discharge home. -Discharge home with cane, lidoderm patch, bed rest, follow up with your own pmd and orthopedic within 2 days, repeat xray within 1 week, return to the ER for any new or worsening signs or symptoms. - RAD Interpretation Radiology Orders: 01/07/17 16:23 CHEST W/O CONTRAST [CT] Stat HIP MIN 2V W/ PELVIS RT [RAD] Stat CT Chest: PROCEDURE: CT Chest without contrast HISTORY: rt. posterior rib injury from fall COMPARISON: None. TECHNIQUE: Contiguous axial images were obtained through the chest without intravenous contrast enhancement. Sagittal and coronal reconstructions were performed. Radiation dose (DLP): 195.72 mGy-cm. This CT exam was performed using one or more of the following dose reduction techniques: Automated exposure control, adjustment of the mA and/or kV according to patient size, and/or use of iterative reconstruction technique. FINDINGS: LUNGS: Mild interval improvement in patchy opacity in the left lower lobe compared to prior examination of 11/10/2016. There is focal small airways disease seen in the posterior segment of the right upper lobe. This was not evident on prior examination. There is no other infiltrate identified. There is linear pleural- based scar in left lung apex not evident on prior examination. Followup is advised. MEDIASTINUM: Unremarkable thoracic aorta. No aneurysm. Normal heart size. Coronary arterial calcification. Main pulmonary artery unremarkable. No vascular congestion. No lymphadenopathy. PLEURA: No pleural fluid. No pneumothorax. BONES: No fracture. No destructive lesion. UPPER ABDOMEN: Punctate hepatic and splenic calcifications consistent with old granulomatous disease. OTHER FINDINGS: None. IMPRESSION: No evidence of rib fracture. Improving left lower lobe infiltrate. Focal small airways disease in posterior segment right upper lobe. Linear pleural-based scar in left apex new since prior examination. Followup advised. Hip and Pelvis xray: no fracture or dislocation Marketing Data Specialist: Radiologist - Medication Orders Current Medication Orders: Discontinued Medications Oxycodone/Acetaminophen (Percocet 5/325 Mg Tab) 1 tab PO STAT STA Stop: 01/07/17 16:24 Last Admin: 01/07/17 16:57 Dose: 1 tab - PA / USER INTERFACE DEVELOPER / Resident Statement / has reviewed & agrees with the documentation as recorded. Disposition/Present on Arrival - Present on Arrival Any Indicators Present on Arrival: No History of DVT/PE: No History of Uncontrolled Diabetes: No Urinary Catheter: No History of Decub. Ulcer: No History Surgical Site Infection Following: None - Disposition Have Diagnosis and Disposition been Completed?: Yes Diagnosis: Contusion, Rib injury, Accidental fall Disposition: HOME/ ROUTINE Disposition Time: 17:47 Patient Plan: Discharge Condition: IMPROVED Additional Instructions: -Discharge home with cane, lidoderm patch, bed rest, follow up with your own pmd and orthopedic within 2 days, repeat xray within 1 week, return to the ER for any new or worsening signs or symptoms. Prescriptions: Lidocaine 5% [Lidoderm] 1 patch TOP DAILY PRN #14 patch PRN Reason: Other Referrals: Teresa Sheirdan DO [Primary Care Provider] - Follow up with primary Garth Ortiz III, MD [Medical Doctor] - Follow up with primary Forms: [email or web address] (Micronesian)
--- NOTE | 2017-01-07 17:03 | CT ---
PROCEDURE: CT Chest without contrast HISTORY: rt. posterior rib injury from fall COMPARISON: None. TECHNIQUE: Contiguous axial images were obtained through the chest without intravenous contrast enhancement. Sagittal and coronal reconstructions were performed. Radiation dose (DLP): 195.72 mGy-cm. This CT exam was performed using one or more of the following dose reduction techniques: Automated exposure control, adjustment of the mA and/or kV according to patient size, and/or use of iterative reconstruction technique. FINDINGS: LUNGS: Mild interval improvement in patchy opacity in the left lower lobe compared to prior examination of 11/10/2016. There is focal small airways disease seen in the posterior segment of the right upper lobe. This was not evident on prior examination. There is no other infiltrate identified. There is linear pleural-based scar in left lung apex not evident on prior examination. Followup is advised. MEDIASTINUM: Unremarkable thoracic aorta. No aneurysm. Normal heart size. Coronary arterial calcification. Main pulmonary artery unremarkable. No vascular congestion. No lymphadenopathy. PLEURA: No pleural fluid. No pneumothorax. BONES: No fracture. No destructive lesion. UPPER ABDOMEN: Punctate hepatic and splenic calcifications consistent with old granulomatous disease. OTHER FINDINGS: None. IMPRESSION: No evidence of rib fracture. Improving left lower lobe infiltrate. Focal small airways disease in posterior segment right upper lobe. Linear pleural-based scar in left apex new since prior examination. Followup advised.
--- NOTE | 2017-01-07 17:59 | RAD ---
PROCEDURE: Right Hip Radiographs. HISTORY: rt. lateral hip injury from fall COMPARISON: None. FINDINGS: BONES: The pelvic ring is intact. There is no acute displaced fracture or bone destruction. JOINTS: There is mild degenerative osteoarthrosis in the hip joints with reduced joint spaces and marginal spurring. The sacroiliac joints are normal. SOFT TISSUES: Normal. OTHER FINDINGS: Atherosclerotic vascular calcifications are present. IMPRESSION: No acute displaced fracture or dislocation. Please note occult fractures cannot be excluded on plain radiographs. If there is a persistent clinical concern, an MRI of the hip may be performed for further evaluation.
[2017-01-07 18:17] VITALS: BP 160/72; PULSE 65; RESP 17
== END 2017-01-07 18:17 | disposition home or self-care (01) ==
LOC: ED 16:03
DX: S70.01XA Contusion of right hip, initial encounter (principal); S29.9XXA Unspecified injury of thorax, initial encounter; W18.2XXA Fall in (into) shower or empty bathtub, initial encounter; Y93.E1 Activity, personal bathing and showering; Y92.002 Bathroom of unspecified non-institutional (private) residence as the place of occurrence of the external cause

== ENCOUNTER 2017-01-16 09:43 | Emergency (ER) | payer OTHER, MEDICAID ==
[2017-01-16 10:02] VITALS: RESP 18; TEMP 98.3; O2SAT 100
--- NOTE | 2017-01-16 10:15 | ED PDOC ---
Arrival/HPI - General Chief Complaint: Trauma Time Seen by Provider: 01/16/17 09:52 Historian: Patient - History of Present Illness Narrative History of Present Illness (Text): 01/16/17 10:14 This 76 yo male presents to this ED c/o right hip pain, and right lower keg bruising x 9 days. Patient stated he fell down causing rib pain, and right hip pain x 9 days ago. He was seen in this ED and CT chest and right hip x-rays were negative. Patient was recommended to return to emergency if symptoms persist, or worsen. Patient stated pain has improved, but he continues with right hip pain, and bruising has worsen. Patient denies sob, cp, abdominal pain , dizziness, FERNANDES, diplopia, dysarthria, or abnormal gait. Time/Duration: Other (9 days) Quality: Aching Context: Home Past Medical History - Provider Review Nursing Documentation Reviewed: Yes - Infectious Disease Hx of Infectious Diseases: None - Tetanus Immunization Tetanus Immunization: Unknown - Reproductive Currently : No Currently Lactating: No - Cardiac Hx Cardiac Disorders: Yes Hx Hypertension: Yes - Pulmonary Hx Respiratory Disorders: No - Neurological Hx Neurological Disorder: No - HEENT Hx HEENT Disorder: No (lasik surgery) - Renal Hx Renal Disorder: No - Endocrine/Metabolic Hx Endocrine Disorders: Yes Hx Diabetes Mellitus Type 2: Yes - Hematological/Oncological Hx Blood Disorders: Yes Hx Anemia: Yes - Integumentary Hx Dermatological Disorder: No - Musculoskeletal/Rheumatological Hx Musculoskeletal Disorders: Yes Hx Falls: Yes - Gastrointestinal Hx Gastrointestinal Disorders: Yes Hx Gastroesophageal Reflux: Yes - Genitourinary/Gynecological Hx Genitourinary Disorders: No - Psychiatric Hx Psychophysiologic Disorder: No Hx Substance Use: No - Past Surgical History Past Surgical History: No Previous - Surgical History Hx Valve Replacement: Yes Other/Comment: valve replacement - Anesthesia Hx Anesthesia: Yes Hx Anesthesia Reactions: No Hx Malignant Hyperthermia: No - Suicidal Assessment Feels Threatened In Home Enviroment: No Family/Social History - Physician Review Nursing Documentation Reviewed: Yes Family/Social History: Other (non-contributory) Smoking Status: Never Smoked Hx Alcohol Use: No Hx Substance Use: No Hx Substance Use Treatment: No Allergies/Home Meds Allergies/Adverse Reactions: Allergies Penicillins Allergy (Severe, Verified 01/16/17 09:59) ANGIOEDEMA aspirin Allergy (Verified 01/16/17 09:59) SWELLING Home Medications: Home Meds Medication Instructions Recorded Confirmed Metformin HCl 1,000 mg PO BID 11/02/11 01/16/17 Aspirin [Aspirin EC] 81 mg PO DAILY 12/30/14 01/16/17 Carvedilol [Coreg] 12.5 mg PO DAILY 03/23/16 01/16/17 GlipiZIDE [Glucotrol] 5 mg PO DAILY 03/23/16 01/16/17 Pravastatin Sodium [Pravachol] 40 mg PO DAILY 03/23/16 01/16/17 Clopidogrel [Plavix] 1 tab PO DAILY 11/09/16 01/16/17 Dexlansoprazole [Dexilant] 1 cap PO DAILY 11/09/16 01/16/17 SITagliptin [Januvia] 1,000 mg PO DAILY 01/16/17 01/16/17 Valsartan/Hydrochlorothiazide 25 mg PO DAILY 01/16/17 01/16/17 [Valsartan-Hctz 320-25 mg Tab] Review of Systems - Review of Systems Constitutional: Normal. absent: Fatigue, Weight Change, Fevers Eyes: Normal. absent: Vision Changes, Photophobia ENT: Normal Respiratory: Normal. absent: SOB, Cough Cardiovascular: Normal. absent: Chest Pain, Palpitations Gastrointestinal: Normal. absent: Abdominal Pain, Nausea, Vomiting Genitourinary Male: Normal. absent: Hematuria Musculoskeletal: Other (see hpi) Skin: Normal. absent: Rash Neurological: Normal. absent: Headache, Dizziness, Focal Weakness, Gait Changes , Speech Changes, Facial Droop, Disequilibrium, Seizure Endocrine: Normal Hemo/Lymphatic: Normal Psychiatric: Normal Physical Exam Vital Signs Temp Pulse Resp BP Pulse Ox 01/16/17 11:21 68 18 148/68 100 01/16/17 10:02 98.3 F 70 18 158/70 H 100 Temperature: Afebrile Blood Pressure: Normal Pulse: Regular Respiratory Rate: Normal Appearance: Positive for: Well-Appearing, Non-Toxic, Comfortable Pain Distress: None Mental Status: Positive for: Alert and Oriented X 3 - Systems Exam Head: Present: Atraumatic, Normocephalic Pupils: Present: PERRL Extroacular Muscles: Present: EOMI Conjunctiva: Present: Normal Mouth: Present: Moist Mucous Membranes Neck: Present: Normal Range of Motion Respiratory/Chest: Present: Clear to Auscultation, Good Air Exchange. No: Respiratory Distress, Accessory Muscle Use Cardiovascular: Present: Regular Rate and Rhythm, Normal S1, S2. No: Murmurs Abdomen: Present: Normal Bowel Sounds. No: Tenderness, Distention, Peritoneal Signs Back: Present: Normal Inspection Upper Extremity: Present: Normal Inspection. No: Cyanosis, Edema Lower Extremity: Present: Other (Mild right leg ecchymosis over medial aspect of thigh. No calf tenderness or edema). No: Edema Neurological: Present: GCS=15, CN II-XII Intact, Speech Normal, Motor Func Grossly Intact, Normal Sensory Function, Normal Cerebellar Funct, Gait Normal, Memory Normal Skin: Present: Warm, Dry, Normal Color. No: Rashes Psychiatric: Present: Alert, Oriented x 3, Normal Insight, Normal Concentration Medical Decision Making ED Course and Treatment: 01/16/17 12:32 Re-evaluation. Patient feels better. Discussed results and plan with patient who expresses understanding. All questions answered and there is agreement with the plan to discharge home with instructions. Patient stable for discharge. Return if symptoms persist or worsen. Patient refsued pain medication in ED or prescription for pain medication. Patient is ambulatory. Re-evaluation Time: 12:32 Reassessment Condition: Re-examined, Improved - RAD Interpretation Narrative RAD Interpretations (Text): 01/16/17 12:31 Accession No. : [id number] Patient Name / ID : HEMANTH JENN / [id number] Exam Date : 01/16/2017 10:38:25 ( Approved ) Study Comment : Sex / Age : M / 76Y Creator : Lito Johansen MD Dictator : Lito Johansen MD Vp Packaging : Horse Show Judge : Lito Johansen MD Approver2 : Report Date : 01/16/2017 11:53:02 My Comment : PROCEDURE: Right lower extremity venous US HISTORY: Leg pain and swelling. Evaluate for DVT. PHYSICIAN(S): Peter L. Hills, M.D. TECHNIQUE: Duplex sonography and color-flow Doppler with graded compression were used to evaluate the deep venous system of the right lower extremity. FINDINGS: The visualized deep venous system of the right lower extremity is sonographically normal and compressible. Normal waveforms and augmentation are seen. There is no sonographic evidence for deep venous thrombosis in the visualized segments of the right lower extremity. IMPRESSION: 1. No sonographic evidence for deep venous thrombosis in the visualized segments of the right lower extremity. 01/16/17 12:31 Accession No. : [id number] Patient Name / ID : HEMANTH [facility] / [id number] Exam Date : 01/16/2017 10:20:58 ( Approved ) Study Comment : Sex / Age : M / 76Y Creator : Tito Wan MD Dictator : Tito Wan MD Vp Packaging : Horse Show Judge : Tito Wan MD Approver2 : Report Date : 01/16/2017 12:25:18 My Comment : PROCEDURE: CT of the Right Hip. Eight days indication patchy have now? . HISTORY: right hip pain COMPARISON: None available. TECHNIQUE: Contiguous axial images of the right hip were obtained. Coronal and sagittal reformats were generated. This CT exam was performed using one or more of the following dose reduction techniques: Automated exposure control, adjustment of the mA and/or kV according to patient size, and/or use of iterative reconstruction technique. Radiation dose = 127.56 mGy - FINDINGS: BONES: No evidence of acute displaced fracture nor dislocation. Osseous structures appear intact. . No cortical destructive changes are identified. RIGHT HIP JOINT: Right femoral head is appropriately located within the right acetabulum. Mild spurring of the superolateral margin of the acetabular roof with mild subchondral sclerosis and joint space narrowing. . Additionally, there also appears to be small subchondral cystic changes within the acetabular roof as well. SOFT TISSUES: Soft tissues appear grossly unremarkable without evidence of collections or subcutaneous air. Vascular calcifications are present. IMPRESSION: No acute fractures. 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 Radiology Orders: 01/16/17 10:14 DUPLEX LOWER EXTRM VEIN RIGHT [US] Stat 01/16/17 10:16 EXT LOWER W/O CONTRAST RIGHT [CT] Stat Disposition/Present on Arrival - Present on Arrival Any Indicators Present on Arrival: No History of DVT/PE: No History of Uncontrolled Diabetes: No Urinary Catheter: No History of Decub. Ulcer: No History Surgical Site Infection Following: None - Disposition Have Diagnosis and Disposition been Completed?: Yes Diagnosis: Hip pain, Traumatic ecchymosis of right lower leg Disposition: HOME/ ROUTINE Disposition Time: 12:35 Patient Plan: Discharge Patient Problems: Current Active Problems Problem Status Onset Hip pain Acute Traumatic ecchymosis of right lower leg Acute Condition: GOOD Discharge Instructions (ExitCare): Contusion in Adults (ED) Additional Instructions: Call private doctor Arvin for follow up visit in 1-2 days. Continue with home medication. Return to emergency if symptoms worsen. Forms: [employer] (Bulgarian)
--- NOTE | 2017-01-16 11:54 | US ---
PROCEDURE: Right lower extremity venous US HISTORY: Leg pain and swelling. Evaluate for DVT. PHYSICIAN(S): Lito Hills M.D. TECHNIQUE: Duplex sonography and color-flow Doppler with graded compression were used to evaluate the deep venous system of the right lower extremity. FINDINGS: The visualized deep venous system of the right lower extremity is sonographically normal and compressible. Normal waveforms and augmentation are seen. There is no sonographic evidence for deep venous thrombosis in the visualized segments of the right lower extremity. IMPRESSION: 1. No sonographic evidence for deep venous thrombosis in the visualized segments of the right lower extremity.
--- NOTE | 2017-01-16 12:27 | CT ---
PROCEDURE: CT of the Right Hip. Eight days indication patchy have now? . HISTORY: right hip pain COMPARISON: None available. TECHNIQUE: Contiguous axial images of the right hip were obtained. Coronal and sagittal reformats were generated. This CT exam was performed using one or more of the following dose reduction techniques: Automated exposure control, adjustment of the mA and/or kV according to patient size, and/or use of iterative reconstruction technique. Radiation dose = 127.56 mGy - FINDINGS: BONES: No evidence of acute displaced fracture nor dislocation. Osseous structures appear intact. . No cortical destructive changes are identified. RIGHT HIP JOINT: Right femoral head is appropriately located within the right acetabulum. Mild spurring of the superolateral margin of the acetabular roof with mild subchondral sclerosis and joint space narrowing. . Additionally, there also appears to be small subchondral cystic changes within the acetabular roof as well. SOFT TISSUES: Soft tissues appear grossly unremarkable without evidence of collections or subcutaneous air. Vascular calcifications are present. IMPRESSION: No acute fractures. 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
[2017-01-16 12:40] VITALS: BP 145/64; PULSE 66
== END 2017-01-16 12:52 | disposition home or self-care (01) ==
LOC: ED 09:43
DX: M25.551 Pain in right hip (principal); S70.11XA Contusion of right thigh, initial encounter; W19.XXXA Unspecified fall, initial encounter

== ENCOUNTER 2017-04-27 12:46 | Emergency (ER) | payer MEDICAID, OTHER ==
[2017-04-27 13:11] VITALS: BMI 20.5
[2017-04-27 13:13] VITALS: O2SAT 100
--- NOTE | 2017-04-27 13:16 | ED PDOC ---
Arrival/HPI - General Chief Complaint: Dizziness/Lightheaded Time Seen by Provider: 04/27/17 13:10 Historian: Patient, Family - History of Present Illness Narrative History of Present Illness (Text): 04/27/17 13:16 A 76 year old male, whose past medical history includes chronic back pain, diabetes, CAD on Plavix and Aspirin, and anemia, brought into the emergency department by family for evaluation after fall. Family reports patient has been complaining of feeling dizzy since this morning. Patient states he stood up, felt dizzy and fell to the floor injuring his left eye. Family states patient briefly had difficulty speaking, which resolved after approximately 5 minutes. On evaluation, patient states he currently feels better and denies any dizziness. Patient denies any other injuries, loss of consciousness, headache, fever, chills, nausea, vomiting, abdominal pain, chest pain, shortness of breath or any other complaints. Patients last tetanus shot was 9 months ago in July. Time/Duration: Prior to Arrival Symptom Course: Resolved Context: Home Past Medical History - Provider Review Nursing Documentation Reviewed: Yes - Infectious Disease Hx of Infectious Diseases: None - Tetanus Immunization Tetanus Immunization: Unknown - Reproductive Currently Lactating: No - Cardiac Hx Cardiac Disorders: Yes Hx Hypotension: Yes - Pulmonary Hx Respiratory Disorders: No - Neurological Hx Neurological Disorder: No - HEENT Hx HEENT Disorder: No (lasik surgery) - Renal Hx Renal Disorder: No - Endocrine/Metabolic Hx Endocrine Disorders: Yes Hx Diabetes Mellitus Type 2: Yes - Hematological/Oncological Hx Blood Disorders: Yes Hx Anemia: Yes - Integumentary Hx Dermatological Disorder: No - Musculoskeletal/Rheumatological Hx Musculoskeletal Disorders: Yes Hx Falls: Yes - Gastrointestinal Hx Gastrointestinal Disorders: Yes Hx Gastroesophageal Reflux: Yes - Genitourinary/Gynecological Hx Genitourinary Disorders: No - Psychiatric Hx Psychophysiologic Disorder: No Hx Substance Use: No - Past Surgical History Past Surgical History: No Previous - Surgical History Hx Valve Replacement: Yes Other/Comment: valve replacement - Anesthesia Hx Anesthesia: Yes Hx Anesthesia Reactions: No Hx Malignant Hyperthermia: No - Suicidal Assessment Feels Threatened In Home Enviroment: No Family/Social History - Physician Review Nursing Documentation Reviewed: Yes Family/Social History: No Known Family HX Smoking Status: Never Smoked Hx Alcohol Use: No Hx Substance Use: No Hx Substance Use Treatment: No Allergies/Home Meds Allergies/Adverse Reactions: Allergies Penicillins Allergy (Severe, Verified 12/27/17 13:14) ANGIOEDEMA aspirin Allergy (Verified 04/27/17 13:14) SWELLING Home Medications: Home Meds Medication Instructions Recorded Confirmed Metformin HCl 1,000 mg PO BID 11/02/11 04/27/17 Aspirin [Aspirin EC] 81 mg PO DAILY 12/30/14 04/27/17 Carvedilol [Coreg] 12.5 mg PO DAILY 03/23/16 04/27/17 GlipiZIDE [Glucotrol] 5 mg PO DAILY 03/23/16 04/27/17 Pravastatin Sodium [Pravachol] 40 mg PO DAILY 03/23/16 04/27/17 Clopidogrel [Plavix] 30 mg PO DAILY 11/09/16 04/27/17 Dexlansoprazole [Dexilant] 1 cap PO DAILY 11/09/16 04/27/17 SITagliptin [Januvia] 1,000 mg PO DAILY 01/16/17 04/27/17 Valsartan/Hydrochlorothiazide 25 mg PO DAILY 01/16/17 04/27/17 [Valsartan-Hctz 320-25 mg Tab] Review of Systems - Physician Review All systems were reviewed & negative as marked: Yes - Review of Systems Constitutional: absent: Fevers, Night Sweats Respiratory: absent: SOB Cardiovascular: absent: Chest Pain Gastrointestinal: absent: Abdominal Pain, Nausea, Vomiting Musculoskeletal: Back Pain (chronic) Skin: Laceration (to left eye) Neurological: Dizziness (resolved). absent: Headache Physical Exam Vital Signs Reviewed: Yes Vital Signs Temp Pulse Resp BP Pulse Ox 04/27/17 13:11 68 18 135/71 100 04/27/17 12:46 98.5 F 68 18 135/71 98 Blood Pressure: Normal Pulse: Regular Respiratory Rate: Normal Appearance: Positive for: Well-Appearing, Non-Toxic, Comfortable Pain Distress: None Mental Status: Positive for: Alert and Oriented X 3 Finger Stick Blood Glucose: 142 - Systems Exam Head: Present: Atraumatic, Normocephalic Pupils: Present: PERRL Extroacular Muscles: Present: EOMI Conjunctiva: Present: Normal Mouth: Present: Moist Mucous Membranes Neck: Present: Normal Range of Motion Respiratory/Chest: Present: Clear to Auscultation, Good Air Exchange. No: Respiratory Distress, Accessory Muscle Use Cardiovascular: Present: Regular Rate and Rhythm, Normal S1, S2. No: Murmurs Abdomen: Present: Normal Bowel Sounds. No: Tenderness, Distention, Peritoneal Signs Upper Extremity: Present: Normal Inspection. No: Cyanosis, Edema Lower Extremity: Present: Normal Inspection. No: Edema Neurological: Present: GCS=15, CN II-XII Intact, Speech Normal, Motor Func Grossly Intact, Normal Sensory Function, Normal Cerebellar Funct, Gait Normal Skin: Present: Warm, Dry, Normal Color, Laceration (0.5 cm laceration to left supraorbital area). No: Rashes Psychiatric: Present: Alert, Oriented x 3, Normal Insight, Normal Concentration Medical Decision Making ED Course and Treatment: 04/27/17 13:16 Impression: A 76 year old male with dizziness, causing him to fall sustaining a laceration to supraorbital area Plan: -- Head CT -- Labs -- Reassess and disposition Progress Notes: Report Date : 04/27/2017 14:55:17 PROCEDURE: CT HEAD WITHOUT CONTRAST. Dictator : Romulo Eden MD IMPRESSION: Negative study 04/27/17 16:02 Patient was able to ambulate independently to the bathroom. He is currently independently and denies any complaints. All studies are negative. Patient will be discharge home with family. Patient and family express understanding and are in agreement with plan. - Lab Interpretations Lab Results: 04/27/17 14:41 04/27/17 14:41 Lab Results 04/27/17 14:41: Sodium 131 L, Potassium 5.1 H, Chloride 99, Carbon Dioxide 22, Anion Gap 16, BUN 28 H, Creatinine 1.0, Est GFR ( Amer) > 60, Est GFR ( Non-Af Amer) > 60, Random Glucose 267 H, Calcium 9.1, Total Bilirubin 0.5, AST 50, ALT 70 H, Alkaline Phosphatase 67, Total Protein 6.7, Albumin 3.9, Globulin 2.8, Albumin/Globulin Ratio 1.4 04/27/17 14:41: PT 13.5 H, INR 1.23 H 04/27/17 14:41: WBC 7.6 D, RBC 3.70, Hgb 10.8 L, Hct 31.9 L, MCV 86.2, MCH 29.2 , MCHC 33.9, RDW 12.8, Plt Count 166, MPV 9.9, Gran % 78.8 H, Lymph % (Auto) 12.9 L, Dickenson % (Auto) 5.8, Eos % (Auto) 2.1, Baso % (Auto) 0.4, Gran # 5.97, Lymph # 1.0 L, Dickenson # 0.4, Eos # 0.2, Baso # 0.03 I have reviewed the lab results: Yes - RAD Interpretation Radiology Orders: 04/27/17 13:18 HEAD W/O CONTRAST [CT] Stat - Scribe Statement The provider has reviewed the documentation as recorded by the Scribe Malia Barney Provider Scribe Attestation: All medical record entries made by the Scribe were at my direction and personally dictated by me. I have reviewed the chart and agree that the record accurately reflects my personal performance of the history, physical exam, medical decision making, and the department course for this patient. I have also personally directed, reviewed, and agree with the discharge instructions and disposition. Disposition/Present on Arrival - Present on Arrival Any Indicators Present on Arrival: No History of DVT/PE: No History of Uncontrolled Diabetes: No Urinary Catheter: No History of Decub. Ulcer: No History Surgical Site Infection Following: None - Disposition Have Diagnosis and Disposition been Completed?: Yes Diagnosis: Dizziness, Head injury, Laceration Disposition: HOME/ ROUTINE Disposition Time: 16:15 Patient Plan: Discharge Condition: IMPROVED Additional Instructions: rest today; increase activity tomorrow as tolerated. Referrals: Teresa Sheridan DO [Primary Care Provider] - Follow up with primary Forms: [employer] ([place])
[2017-04-27 14:19] VITALS: TEMP 98.5
--- NOTE | 2017-04-27 14:56 | CT ---
PROCEDURE: CT HEAD WITHOUT CONTRAST. HISTORY: trauma left COMPARISON: None available. TECHNIQUE: Axial computed tomography images were obtained through the head/brain without intravenous contrast. Radiation dose: Total exam DLP = 742 mGy-cm. This CT exam was performed using one or more of the following dose reduction techniques: Automated exposure control, adjustment of the mA and/or kV according to patient size, and/or use of iterative reconstruction technique. FINDINGS: HEMORRHAGE: No intracranial hemorrhage. BRAIN: No mass effect or edema. There is mild atrophy. No acute findings VENTRICLES: Unremarkable. No hydrocephalus. CALVARIUM: Unremarkable. PARANASAL SINUSES: Unremarkable as visualized. No significant inflammatory changes. MASTOID AIR CELLS: Unremarkable as visualized. No inflammatory changes. OTHER FINDINGS: None. IMPRESSION: Negative study
[2017-04-27 15:06] LABS: BASO # 0.03 K/mm3 (0.0-2.0); BASO % 0.4 % (0.0-3.0); EOS # 0.2 (0.0-0.7); EOS % 2.1 % (1.5-5.0); GRAN # 5.97 (1.4-6.5); GRAN % 78.8 % (50.0-68.0); HEMOGLOBIN 10.8 g/dL (14.0-18.0); LYMPH % 12.9 % (22.0-35.0); MEAN CELL VOLUME 86.2 fl (80.0-105.0); MEAN CORPUSCULAR HEMOGLOBIN 29.2 pg (25.0-35.0); MEAN CORPUSCULAR HGB CONC 33.9 g/dl (31.0-37.0); MEAN PLATELET VOLUME 9.9 fl (7.0-11.0); MONO # 0.4 (0.1-0.6); MONO % 5.8 % (1.0-6.0); RBC 3.7 10^6/uL (3.5-6.1); RED CELL DISTRIBUTION WIDTH 12.8 % (11.5-14.5); WHITE BLOOD COUNT 7.6 10^3/ul (4.5-11.0)
[2017-04-27 15:19] LABS: ALB/GLOB RATIO 1.4 (1.1-1.8); ALBUMIN 3.9 g/dL (3.0-4.8); ALT/SGPT 70 U/L (7-56); AST/SGOT 50 U/L (17-59); BLOOD UREA NITROGEN 28 mg/dL (7-21); CALCIUM 9.1 mg/dL (8.4-10.5); GFR AFRICAN-AMERICAN > 60; GFR NON-AFRICAN AMERICAN > 60
[2017-04-27 15:23] LABS: INR 1.23 (0.93-1.08); PROTHROMBIN TIME 13.5 SECONDS (9.4-12.5)
[2017-04-27 16:34] VITALS: BP 156/59; PULSE 66; RESP 16
--- NOTE | 2017-04-27 19:32 | CARD ---
APPROVED REPORT EKG Measurement Heart [id number] <Conclusion> Normal sinus rhythm Right bundle branch block Left anterior fascicular block Bifascicular block Septal infarct, age undetermined Abnormal ECG
== END 2017-04-27 16:34 | disposition home or self-care (01) ==
LOC: ED 12:46
DX: S01.81XA Laceration without foreign body of other part of head, initial encounter (principal); W18.39XA Other fall on same level, initial encounter; Y92.89 Other specified places as the place of occurrence of the external cause; R42 Dizziness and giddiness; I25.10 Atherosclerotic heart disease of native coronary artery without angina pectoris; E11.9 Type 2 diabetes mellitus without complications; Z79.82 Long term (current) use of aspirin

== ENCOUNTER 2018-09-05 08:06 | Emergency (ER) | payer OTHER ==
[2018-09-05 08:34] VITALS: BP 160/89; PULSE 69; RESP 18; TEMP 98.8; O2SAT 100; BMI 20.2
[2018-09-05] MEDS ORDERED: TDAP Vaccine 0.5 mL Syr IM ONE (08:35)
[2018-09-05] MEDS ORDERED: Bacitracin 500 Units/gm Oint Foilpak UD TOP ONE (08:35)
--- NOTE | 2018-09-05 08:38 | ED PDOC ---
Arrival/HPI - General Historian: Patient - History of Present Illness Narrative History of Present Illness (Text): 09/05/18 08:35 78 year old M with pmh of diabetes, CAD and anemia presents complaining of small laceration on left hand for 1 month. He denies any active bleeding. Patient reports he cut himself on a nail near door knob. He is not up to date with tetanus shot. Patient denies any fevers, chills, headache, dizziness, chest pain, shortness of breath, dyspnea on exertion, cough, diaphoresis, abdominal pain, nausea, vomiting, diarrhea, back pain, neck pain, or any other complaint. Time/Duration: < month Symptom Onset: Sudden Symptom Course: Unchanged Activities at Onset: Significant Context: Home Past Medical History - Provider Review Nursing Documentation Reviewed: Yes - Travel History Have you recently traveled outside [place] w/in the past 3 mons?: No - Infectious Disease Hx of Infectious Diseases: None - Tetanus Immunization Tetanus Immunization: Unknown - Reproductive Currently Lactating: No - Cardiac Hx Cardiac Disorders: Yes Hx Hypertension: Yes Hx Hypotension: Yes - Pulmonary Hx Respiratory Disorders: No - Neurological Hx Neurological Disorder: No - HEENT Hx HEENT Disorder: No (lasik surgery) - Renal Hx Renal Disorder: No - Endocrine/Metabolic Hx Endocrine Disorders: Yes Hx Diabetes Mellitus Type 2: Yes - Hematological/Oncological Hx Blood Disorders: Yes Hx Anemia: Yes - Integumentary Hx Dermatological Disorder: No - Musculoskeletal/Rheumatological Hx Musculoskeletal Disorders: Yes Hx Falls: Yes - Gastrointestinal Hx Gastrointestinal Disorders: Yes Hx Gastroesophageal Reflux: Yes - Genitourinary/Gynecological Hx Genitourinary Disorders: No - Psychiatric Hx Psychophysiologic Disorder: No Hx Substance Use: No - Past Surgical History Past Surgical History: No Previous - Surgical History Hx Cardiac Catheterization: Yes Hx Valve Replacement: Yes Other/Comment: valve replacement - Anesthesia Hx Anesthesia: Yes Hx Anesthesia Reactions: No Hx Malignant Hyperthermia: No - Suicidal Assessment Feels Threatened In Home Enviroment: No Family/Social History - Physician Review Nursing Documentation Reviewed: Yes Family/Social History: Unknown Family HX Smoking Status: Never Smoked Hx Alcohol Use: No Hx Substance Use: No Hx Substance Use Treatment: No Allergies/Home Meds Allergies/Adverse Reactions: Allergies Penicillins Allergy (Severe, Verified 01/09/18 12:00) ANGIOEDEMA Home Medications: Home Meds Medication Instructions Recorded Confirmed Metformin HCl 1,000 mg PO BID 11/02/11 01/09/18 Aspirin [Aspirin EC] 81 mg PO DAILY 12/30/14 01/09/18 Carvedilol [Coreg] 12.5 mg PO DAILY 03/23/16 01/09/18 GlipiZIDE [Glucotrol] 5 mg PO DAILY 03/23/16 01/09/18 Pravastatin Sodium [Pravachol] 40 mg PO DAILY 03/23/16 01/09/18 Clopidogrel [Plavix] 30 mg PO DAILY 11/09/16 01/09/18 Dexlansoprazole [Dexilant] 1 cap PO DAILY 11/09/16 01/09/18 SITagliptin [Januvia] 1,000 mg PO DAILY 01/16/17 01/09/18 Valsartan/Hydrochlorothiazide 25 mg PO DAILY 01/16/17 01/09/18 [Valsartan-Hctz 320-25 mg Tab] Review of Systems - Physician Review All systems were reviewed & negative as marked: Yes - Review of Systems Constitutional: absent: Fevers ENT: absent: Sore Throat, Rhinorrhea, Epistaxis Respiratory: absent: SOB, Cough, Wheezing Cardiovascular: absent: Chest Pain, Palpitations Gastrointestinal: absent: Abdominal Pain, Diarrhea, Vomiting, Hematochezia, Hematemesis Genitourinary Male: absent: Dysuria, Frequency, Hematuria, Urinary Output Changes Musculoskeletal: absent: Arthralgias, Myalgias Neurological: absent: Headache, Dizziness Physical Exam Vital Signs Reviewed: Yes Vital Signs Temp Pulse Resp BP Pulse Ox 09/05/18 08:32 98.8 F 69 18 160/89 H 100 Temperature: Afebrile Blood Pressure: Hypertensive Pulse: Regular Respiratory Rate: Normal Appearance: Positive for: Well-Appearing, Non-Toxic, Comfortable Pain Distress: None Mental Status: Positive for: Alert and Oriented X 3 - Systems Exam Head: Present: Atraumatic, Normocephalic Upper Extremity: Present: Normal ROM (left hand), NORMAL PULSES (normal left hand radial pulses), Neurovascularly Intact (left hand), Capillary Refill < 2s (left hand), Other (Dry healed wound, No open laceration. ). No: Tenderness (left hand), Swelling (left hand), Deformity (left hand) Psychiatric: Present: Alert, Oriented x 3 Medical Decision Making ED Course and Treatment: 09/05/18 08:38 Impression: 78 year old M presents complaining of small laceration on left hand x 1month. Patient reports he cut himself on a nail near door knob. He is not up to date with tetanus shot. Focus exam on left hand was performed Plan: -- Bacitracin -- TDAP Vaccine -- Reassess and disposition Prior Visits: Notes and results from previous visits were reviewed. Progress Notes: 09/05/18 0900 Wound wrapped and bandaged with patient given instruction on monitoring wound. He is advised follow up with his PCP. Opportunity for questions given and answered. - Scribe Statement The provider has reviewed the documentation as recorded by the Scribe Carl Piedra All medical record entries made by the Scribe were at my direction and personally dictated by me. I have reviewed the chart and agree that the record accurately reflects my personal performance of the history, physical exam, medical decision making, and the department course for this patient. I have also personally directed, reviewed, and agree with the discharge instructions and disposition. Disposition/Present on Arrival - Present on Arrival Any Indicators Present on Arrival: No History of DVT/PE: No History of Uncontrolled Diabetes: No Urinary Catheter: No History Surgical Site Infection Following: None - Disposition Have Diagnosis and Disposition been Completed?: Yes Diagnosis: Hand abrasion, non-infected Disposition: HOME/ ROUTINE Disposition Time: 09:00 Patient Plan: Discharge Condition: STABLE Discharge Instructions (ExitCare): Skin Abrasions (DC) Print Language: ISRA[place] Additional Instructions: All medical record entries made by the Scribe were at my direction and personally dictated by me. I have reviewed the chart and agree that the record accurately reflects my personal performance of the history, physical exam, m edical decision making, and the department course for this patient. I have also personally directed, reviewed, and agree with the discharge instructions and disposition. Please follow up with your PCP in 1 week Keep dressings on hand until you are able to shower Apply Neosporin every 6 hours and keep hand covered with gauze until reevaluated by a physician Prescriptions: Neomycin/Bacitracin/Polymyxinb [Neosporin Ointment] 14.2 gm TP Q6H #2 oint...g. Referrals: [facility] [place] [facility] [place] - Follow up with primary Makenzie Trinidad MD [Medical Doctor] - Follow up with primary Forms: [employer] (Divehi)
[2018-09-05] MEDS ORDERED: Bacitracin 500 Units/gm Oint Foilpak UD ONE (08:43)
== END 2018-09-05 09:28 | disposition home or self-care (01) ==
LOC: ED 08:06
DX: S60.512A Abrasion of left hand, initial encounter (principal); W45.0XXA Nail entering through skin, initial encounter; E11.9 Type 2 diabetes mellitus without complications; I25.10 Atherosclerotic heart disease of native coronary artery without angina pectoris; I10 Essential (primary) hypertension; Z23 Encounter for immunization

== ENCOUNTER 2018-09-09 12:13 | Emergency (ER) | payer OTHER ==
[2018-09-09 12:18] VITALS: RESP 18; TEMP 98.2; BMI 20.9
[2018-09-09] MEDS ORDERED: Bacitracin 500 Units/gm Oint Foilpak UD TOP ONE (12:42)
--- NOTE | 2018-09-09 13:08 | ED PDOC ---
Arrival/HPI - General Time Seen by Provider: 09/09/18 12:15 Historian: Patient - History of Present Illness Narrative History of Present Illness (Text): 09/09/18 13:04 An 78 year old male, whose past medical history includes diabetes, CAD and anemia, presents to the ED for a check up on a left hand injury that he sustained one month ago. Patient reports he scraped his left hand on a nail while trying to open a door. Patient notes only mild improvement of injury with usage of Triple Ointment Antibiotic. He's here because it's just not getting better, he had a little weaping to the wound and he wanted a prescription for bactroban that has helped in the past. Patient also notes he is on his second day (out of 14 days) on Cipro. Patient's Tetanus vaccine is up to date. Patient denies any hand pain, fevers, chills, headache, dizziness, chest pain, shortness of breath, dyspnea on exertion, cough, abdominal pain, nausea, vomiting, diarrhea, back pain, neck pain, urinary/bowel changes, or any other complaints. PMD: Dr. Sheridan Translation with Bengali by [employer] #[id number] though patient does speak some Spanish so he would respond with Bengali and Spanish. Time/Duration: Other (1 month) Symptom Onset: Gradual Symptom Course: Improving Activities at Onset: Light Context: Home Past Medical History - Provider Review Nursing Documentation Reviewed: Yes - Infectious Disease Hx of Infectious Diseases: None - Tetanus Immunization Tetanus Immunization: Unknown - Reproductive Currently Lactating: No - Cardiac Hx Cardiac Disorders: Yes Hx Hypertension: Yes Hx Hypotension: Yes - Pulmonary Hx Respiratory Disorders: No - Neurological Hx Neurological Disorder: No - HEENT Hx HEENT Disorder: No (lasik surgery) - Renal Hx Renal Disorder: No - Endocrine/Metabolic Hx Endocrine Disorders: Yes Hx Diabetes Mellitus Type 2: Yes - Hematological/Oncological Hx Blood Disorders: Yes Hx Anemia: Yes - Integumentary Hx Dermatological Disorder: No - Musculoskeletal/Rheumatological Hx Musculoskeletal Disorders: Yes Hx Falls: Yes - Gastrointestinal Hx Gastrointestinal Disorders: Yes Hx Gastroesophageal Reflux: Yes - Genitourinary/Gynecological Hx Genitourinary Disorders: No - Psychiatric Hx Psychophysiologic Disorder: No Hx Substance Use: No - Past Surgical History Past Surgical History: No Previous - Surgical History Hx Cardiac Catheterization: Yes Hx Valve Replacement: Yes Other/Comment: valve replacement - Anesthesia Hx Anesthesia: Yes Hx Anesthesia Reactions: No Hx Malignant Hyperthermia: No - Suicidal Assessment Feels Threatened In Home Enviroment: No Family/Social History - Physician Review Nursing Documentation Reviewed: Yes Family/Social History: Unknown Family HX Smoking Status: Never Smoked Hx Alcohol Use: No Hx Substance Use: No Hx Substance Use Treatment: No Allergies/Home Meds Allergies/Adverse Reactions: Allergies Penicillins Allergy (Severe, Verified 01/09/18 12:00) ANGIOEDEMA Home Medications: Home Meds Medication Instructions Recorded Confirmed Metformin HCl 1,000 mg PO BID 11/02/11 01/09/18 Aspirin [Aspirin EC] 81 mg PO DAILY 12/30/14 01/09/18 Carvedilol [Coreg] 12.5 mg PO DAILY 03/23/16 01/09/18 GlipiZIDE [Glucotrol] 5 mg PO DAILY 03/23/16 01/09/18 Pravastatin Sodium [Pravachol] 40 mg PO DAILY 03/23/16 01/09/18 Clopidogrel [Plavix] 30 mg PO DAILY 11/09/16 01/09/18 Dexlansoprazole [Dexilant] 1 cap PO DAILY 11/09/16 01/09/18 SITagliptin [Januvia] 1,000 mg PO DAILY 01/16/17 01/09/18 Valsartan/Hydrochlorothiazide 25 mg PO DAILY 01/16/17 01/09/18 [Valsartan-Hctz 320-25 mg Tab] Review of Systems - Physician Review All systems were reviewed & negative as marked: Yes - Review of Systems Constitutional: absent: Fatigue, Fevers Eyes: absent: Vision Changes ENT: absent: Hearing Changes Respiratory: absent: SOB, Cough Cardiovascular: absent: Chest Pain Gastrointestinal: absent: Abdominal Pain, Nausea, Vomiting Genitourinary Male: absent: Dysuria, Frequency Musculoskeletal: absent: Back Pain, Neck Pain Skin: Other (Left hand scrape). absent: Rash Neurological: absent: Headache, Dizziness Endocrine: absent: Diaphoresis Hemo/Lymphatic: absent: Adenopathy Psychiatric: absent: Anxiety, Depression Physical Exam Vital Signs Reviewed: Yes Vital Signs Temp Pulse Resp BP Pulse Ox 09/09/18 12:15 98.2 F 73 18 184/73 H 98 Temperature: Afebrile Blood Pressure: Hypertensive Pulse: Regular Respiratory Rate: Normal Appearance: Positive for: Well-Appearing, Non-Toxic, Comfortable Pain Distress: None Mental Status: Positive for: Alert and Oriented X 3 - Systems Exam Upper Extremity: Present: Normal ROM, NORMAL PULSES, Erythema, Other (2 by 1.5 inches healing abrasion/wound to left hand, no warmth, normal strength). No: Tenderness, Swelling Medical Decision Making ED Course and Treatment: 09/09/18 13:12 Impression: An 78 year old male presents to the ED for a left hand healing wound Differential Diagnosis included but are not limited to: Cellulitis of healing wound on hand Plan: -- Bacitracin -- Reassess and disposition Prior Visits: Notes and results from previous visits were reviewed. Patient was last seen in the emergency department on Progress Notes: 09/09/18 13:46 I discuss the care of his wound with his PMD Dr. Sheridan. She agreed that we switch the Cipro and start him on Bactrim. Patient was given one does of Bactrim here. He says the wound is getting better and he has no fever so at this time we will manage as an outpatient. He doesn't want to use the triple antibiotic ointment so instead will give him Bactroban which he requestsed. He was explained in detail with the translater the importance of follow up with his PMD Dr. Sheridan so he can make sure the wound does not get worse. He was advised to return to the ED if wound gets worsening in redness, pus, fever or any other concern. - Medication Orders Current Medication Orders: Discontinued Medications Bacitracin (Bacitracin) 1 ea TOP ONCE ONE Stop: 09/09/18 12:43 - Scribe Statement The provider has reviewed the documentation as recorded by the Nish Biggs Provider Scribe Attestation: All medical record entries made by the Aniibomid were at my direction and personally dictated by me. I have reviewed the chart and agree that the record accurately reflects my personal performance of the history, physical exam, medical decision making, and the department course for this patient. I have also personally directed, reviewed, and agree with the discharge instructions and disposition. Disposition/Present on Arrival - Present on Arrival Any Indicators Present on Arrival: No History of DVT/PE: No History of Uncontrolled Diabetes: No Urinary Catheter: No History Surgical Site Infection Following: None - Disposition Have Diagnosis and Disposition been Completed?: Yes Diagnosis: Cellulitis of hand Disposition: HOME/ ROUTINE Disposition Time: 13:50 Patient Plan: Discharge Condition: GOOD Discharge Instructions (ExitCare): Cellulitis (ED) Additional Instructions: JENN SAXENA, thank you for letting us take care of you today. Your provider was Huang Horton DO and you were treated for Hand cellulitis. The emergency medical care you received today was directed at your acute symptoms. If you were prescribed any medication, please fill it and take as directed. It may take several days for your symptoms to resolve. Return to the Emergency Department if your symptoms worsen, do not improve, or if you have any other problems. Please contact your doctor or call one of the physicians/clinics you have been referred to that are listed on the Patient Visit Information form that is included in your discharge packet. Bring any paperwork you were given at discharge with you along with any medications you are taking to your follow up visit. Our treatment cannot replace ongoing medical care by a primary care provider outside of the emergency department. Thank you for allowing the [facility] team to be part of your care today. If you had an X-Ray or CT scan: A Radiologist will review the ED reading if any change in treatment is needed we will contact you. If you had a blood, urine, or wound culture: It will take several days for the results, if any change in treatment is needed we will contact you. If you had an STI test: It will take 48 hours for the results. Please call after 1 week if you have not heard back. Prescriptions: Mupirocin 2% Cream [Bactroban Cream] 30 applic TOP TID #1 tube Sulfamethoxazole/Trimethoprim [Bactrim DS 800 mg-160 mg] 1 tab PO Q12 #20 tab Referrals: Teresa Sheridan DO [Family Provider] - Follow up with primary Forms: [employer] (Spanish), WORK NOTE
[2018-09-09] MEDS: Tmp-Smz 800 mg-160 mg DS Tab PO STA ×2 (13:45→13:50)
[2018-09-09 13:57] VITALS: BP 154/76; PULSE 76; O2SAT 97
== END 2018-09-09 13:57 | disposition home or self-care (01) ==
LOC: ED 12:13
DX: L03.114 Cellulitis of left upper limb (principal)